=== PATIENT | female | born 1945 | race Caucasian/White ===

== ENCOUNTER → 2016-10-11 | Outpatient (REF) | payer MEDICARE, OTHER ==
[2016-10-11 18:59] LABS: ALBUMIN 3.5 GM/DL (3.2-5.2); ALBUMIN/GLOBULIN RATIO 0.85 (1.00-1.93); ALKALINE PHOSPHATASE 221 U/L (45-117); ALT/SGPT 25 U/L (12-78); ANION GAP 7 MEQ/L (8-16); AST/SGOT 19 U/L (15-37); BILIRUBIN,TOTAL 0.4 MG/DL (0.2-1.0); BLOOD UREA NITROGEN 14 MG/DL (7-18); CALCIUM LEVEL 8.7 MG/DL (8.8-10.2); CARBON DIOXIDE LEVEL 24 MEQ/L (21-32); CHLORIDE LEVEL 107 MEQ/L (98-107); CREATININE FOR GFR 0.69 MG/DL (0.55-1.02); GLOMERULAR FILTRATION RATE > 60.0 (>39); GLUCOSE, FASTING 113 MG/DL (83-110); POTASSIUM SERUM 4.3 MEQ/L (3.5-5.1); SODIUM LEVEL 138 MEQ/L (136-145); TOTAL PROTEIN 7.6 GM/DL (6.4-8.2)
[2016-10-11 19:06] LABS: MEAN CORPUSCULAR HEMOGLOBIN 32.2 pg (27.0-33.0); MEAN CORPUSCULAR HGB CONC 33.7 g/dl (32.0-36.5); MEAN CORPUSCULAR VOLUME 95.7 fl (80.0-96.0); WHITE BLOOD COUNT 10.6 K/mm3 (4.0-10.0)
== END ==
LOC: M LABDRAWC 17:07
PROVIDERS: ATTEND Internal Medicine Gastroenterology
DX: Z41.8 Encounter for other procedures for purposes other than remedying health state (principal); Z94.4 Liver transplant status

== ENCOUNTER 2016-12-16 10:51 | Emergency (ER) | payer MEDICARE, OTHER, MEDICAID ==
[~2016-12-16] VITALS: Ht 162.6 cm; Wt 66.2 kg
[2016-12-16] MEDS ORDERED: ATEN100T PO (11:05)
[2016-12-16] MEDS ORDERED: MYCO500T PO (11:05)
[2016-12-16] MEDS ORDERED: TACR1CAP3 PO (11:05)
[2016-12-16] MEDS ORDERED: AMLO10TA2 PO (11:05)
[2016-12-16] MEDS ORDERED: VENL75TA2 PO (11:05)
[2016-12-16] MEDS ORDERED: URSO300C3 PO (11:05)
[2016-12-16] MEDS ORDERED: OMEP20CA3 PO (11:05)
[2016-12-16] MEDS ORDERED: ASPI81TA7 PO (11:06)
[2016-12-16] MEDS ORDERED: ASPIRIN 81 MG CHEW TABLET PO ONE (11:30)
[2016-12-16 11:40] LABS: BASO % 0.3 % (0.0-1.0); EOS # 0.1 K/mm3 (0.0-0.50); EOS % 1.3 % (0.0-3.0); LARGE UNSTAINED CELL # 0.2 K/mm3 (0.0-0.4); LARGE UNSTAINED CELL % 2.4 % (0.0-4.0); LYMPH # 1.7 K/mm3 (1.5-4.5); LYMPH % 24.9 % (24.0-44.0); MEAN CORPUSCULAR HGB CONC 32.6 g/dl (32.0-36.5); MONO # 0.5 K/mm3 (0.0-0.8); MONO % 7.6 % (0.0-5.0); NEUTROPHILS # 4.3 K/mm3 (1.8-7.7); NEUTROPHILS % 63.6 % (36.0-66.0); PLATELET COUNT, AUTOMATED 207 k/mm3 (150-450); RED CELL DISTRIBUTION WIDTH 13.1 % (11.5-14.5); WHITE BLOOD COUNT 6.7 K/mm3 (4.0-10.0)
[2016-12-16 12:04] LABS: ALBUMIN 3.5 GM/DL (3.2-5.2); ALKALINE PHOSPHATASE 230 U/L (45-117); ALT/SGPT 32 U/L (12-78); ANION GAP 8 MEQ/L (8-16); AST/SGOT 40 U/L (15-37); BILIRUBIN,DIRECT 0.1 MG/DL (0.0-0.2); BILIRUBIN,TOTAL 0.3 MG/DL (0.2-1.0); BLOOD UREA NITROGEN 12 MG/DL (7-18); CALCIUM LEVEL 8.7 MG/DL (8.8-10.2); CARBON DIOXIDE LEVEL 26 MEQ/L (21-32); CHLORIDE LEVEL 107 MEQ/L (98-107); CREATININE FOR GFR 0.69 MG/DL (0.55-1.02); GLOMERULAR FILTRATION RATE > 60.0 (>39); GLUCOSE, FASTING 119 MG/DL (83-110); POTASSIUM SERUM 3.7 MEQ/L (3.5-5.1); SODIUM LEVEL 141 MEQ/L (136-145); TOTAL PROTEIN 8.5 GM/DL (6.4-8.2)
[2016-12-16] MEDS ORDERED: HEPARIN SOD (PORCINE) 5000 UNITS/ML VIAL IV ONE (12:45)
[2016-12-16] MEDS ORDERED: HEPARIN DRIP 25,000 UNITS in APPROPRIATE DILUENT 1 EA IV SCH (12:50)
[2016-12-16 12:59] VITALS: BP 153/74
[2016-12-16] MEDS ORDERED: NITROGLYCERIN 2% OINT 1 GM *U/D* PKT TOP ONE (13:00)
[2016-12-16 13:22] VITALS: BP 147/73
[2016-12-16 13:35] LABS: INR 0.95
--- NOTE | 2016-12-17 07:35 | REP ---
PORTABLE CHEST: HISTORY: Chest pain. COMPARISON: None. The technique utilized in obtaining the radiograph has magnified the cardiac silhouette and accentuated the interstitial markings. There is cardiomegaly with left ventricular prominence. There has been previous median sternotomy. The lung jamil are clear and the osseous structures are within normal limits. IMPRESSION: Cardiomegaly without evidence of acute cardiopulmonary disease. Signed by Pedro Winn DO 12/17/2016 09:54 A
--- NOTE | 2016-12-17 14:41 | ECGEPIP ---
Stationary ECG Study [facility] - ED Test Date: 2016-12-16 Pat Name: TRISHA LICEA Department: Room: - Gender: F Arbitrator: PO : 1945 Requested By: NERY LANDON Order Number: [id number] Reading MD: Melody Mason Measurements Intervals [place] Rate: 62 P: 15 MS: 157 QRS: 5 QRSD: 95 T: 101 QT: 413 QTc: 420 Interpretive Statements SINUS RHYTHM ST DEVIATION AND MODERATE T-WAVE ABNORMALITY, CONSIDER LATERAL ISCHEMIA NO PRIOR FOR COMPARISON Electronically Signed On 12-17-2016 14:41:24 EDT by Melody Mason
== END 2016-12-16 13:25 | disposition short-term general hospital (02) ==
LOC: M ED 11:54
DX: I21.4 Non-ST elevation (NSTEMI) myocardial infarction (principal); I51.7 Cardiomegaly; I10 Essential (primary) hypertension; I25.2 Old myocardial infarction; Z94.4 Liver transplant status; Z95.1 Presence of aortocoronary bypass graft; Z79.899 Other long term (current) drug therapy; Z79.82 Long term (current) use of aspirin; Z87.891 Personal history of nicotine dependence

== ENCOUNTER → 2017-01-09 | Outpatient (REF) | payer MEDICARE, OTHER, MEDICAID ==
[~2017-01-09] MED LIST: AMLO10TA2 PO; ASPI81TA7 PO; ATEN100T PO; MYCO500T PO; OMEP20CA3 PO; TACR1CAP3 PO; URSO300C3 PO; VENL75TA2 PO
== END ==
LOC: M SFHCCLAY 09:05
PROVIDERS: ATTEND Nurse Practitioner Family
DX: E11.9 Type 2 diabetes mellitus without complications (principal); E78.5 Hyperlipidemia, unspecified; E55.9 Vitamin D deficiency, unspecified

== ENCOUNTER → 2017-02-06 | Outpatient (REF) | payer MEDICARE, OTHER, MEDICAID ==
[2017-02-06 18:29] LABS: ALBUMIN 3.7 GM/DL (3.2-5.2); ALBUMIN/GLOBULIN RATIO 0.84 (1.00-1.93); ALKALINE PHOSPHATASE 225 U/L (45-117); ALT/SGPT 25 U/L (12-78); ANION GAP 9 MEQ/L (8-16); AST/SGOT 22 U/L (15-37); BILIRUBIN,TOTAL 0.5 MG/DL (0.2-1.0); BLOOD UREA NITROGEN 12 MG/DL (7-18); CARBON DIOXIDE LEVEL 24 MEQ/L (21-32); CHLORIDE LEVEL 105 MEQ/L (98-107); CREATININE FOR GFR 0.78 MG/DL (0.55-1.02); GLOMERULAR FILTRATION RATE > 60.0 (>39); GLUCOSE, FASTING 140 MG/DL (83-110); POTASSIUM SERUM 4.2 MEQ/L (3.5-5.1); SODIUM LEVEL 138 MEQ/L (136-145); TOTAL PROTEIN 8.1 GM/DL (6.4-8.2)
[2017-02-06 19:51] LABS: MEAN CORPUSCULAR HEMOGLOBIN 31.8 pg (27.0-33.0); MEAN CORPUSCULAR HGB CONC 32.6 g/dl (32.0-36.5); MEAN CORPUSCULAR VOLUME 97.5 fl (80.0-96.0); RED CELL DISTRIBUTION WIDTH 13.3 % (11.5-14.5)
== END ==
LOC: M LABDRAWC 16:30
PROVIDERS: ATTEND Internal Medicine Gastroenterology
DX: Z94.4 Liver transplant status (principal); Z41.8 Encounter for other procedures for purposes other than remedying health state

== ENCOUNTER → 2017-05-15 | Outpatient (REF) | payer MEDICARE, OTHER, MEDICAID ==
[~2017-05-15] MED LIST changes: +ASPI1TAB15 PO; -ASPI81TA7 PO
[2017-05-15 18:10] LABS: ALBUMIN 3.6 GM/DL (3.2-5.2); ALBUMIN/GLOBULIN RATIO 0.82 (1.00-1.93); ALKALINE PHOSPHATASE 241 U/L (45-117); ALT/SGPT 29 U/L (12-78); ANION GAP 6 MEQ/L (8-16); AST/SGOT 21 U/L (15-37); BILIRUBIN,TOTAL 0.4 MG/DL (0.2-1.0); BLOOD UREA NITROGEN 18 MG/DL (7-18); CALCIUM LEVEL 8.9 MG/DL (8.8-10.2); CARBON DIOXIDE LEVEL 29 MEQ/L (21-32); CHLORIDE LEVEL 103 MEQ/L (98-107); CREATININE FOR GFR 0.62 MG/DL (0.55-1.02); GLOMERULAR FILTRATION RATE > 60.0 (>39); GLUCOSE, FASTING 81 MG/DL (83-110); POTASSIUM SERUM 4.3 MEQ/L (3.5-5.1); SODIUM LEVEL 138 MEQ/L (136-145)
[2017-05-15 20:08] LABS: MEAN CORPUSCULAR HEMOGLOBIN 31.4 pg (27.0-33.0); MEAN CORPUSCULAR HGB CONC 31.6 g/dl (32.0-36.5); MEAN CORPUSCULAR VOLUME 99.2 fl (80.0-96.0); RED CELL DISTRIBUTION WIDTH 13.6 % (11.5-14.5); WHITE BLOOD COUNT 9.8 10^3/uL (4.0-10.0)
== END ==
LOC: M LABDRAWC 16:09
PROVIDERS: ATTEND Internal Medicine Gastroenterology
DX: Z41.8 Encounter for other procedures for purposes other than remedying health state (principal); Z94.4 Liver transplant status

== ENCOUNTER → 2017-05-31 | Outpatient (REF) | payer MEDICARE, OTHER, MEDICAID | LOC: M SFHCCLAY 10:29 | PROVIDERS: ATTEND Nurse Practitioner | DX: K21.9 Gastro-esophageal reflux disease without esophagitis (principal) ==

== ENCOUNTER → 2017-06-01 | Outpatient (REF) | payer MEDICARE, OTHER, MEDICAID ==
[2017-06-01 11:25] LABS: BASO % 0.4 % (0.0-1.0); EOS # 0.1 10^3/uL (0.0-0.50); EOS % 0.9 % (0.0-3.0); IMMATURE GRANULOCYTE % 2.1 % (0-0); LYMPH # 2.5 10^3/uL (1.5-4.5); LYMPH % 32.5 % (24.0-44.0); MEAN CORPUSCULAR HEMOGLOBIN 31.4 pg (27.0-33.0); MEAN CORPUSCULAR HGB CONC 32.4 g/dl (32.0-36.5); MONO # 0.8 10^3/uL (0.0-0.8); MONO % 10.5 % (0.0-5.0); NEUTROPHILS # 4.1 10^3/uL (1.8-7.7); NEUTROPHILS % 53.6 % (36.0-66.0); PLATELET COUNT, AUTOMATED 201 10^3/uL (150-450); RED CELL DISTRIBUTION WIDTH 13.1 % (11.5-14.5); WHITE BLOOD COUNT 7.6 10^3/uL (4.0-10.0)
[2017-06-01 12:27] LABS: ALBUMIN 3.5 GM/DL (3.2-5.2); ALBUMIN/GLOBULIN RATIO 0.78 (1.00-1.93); ALKALINE PHOSPHATASE 236 U/L (45-117); ALT/SGPT 31 U/L (12-78); ANION GAP 9 MEQ/L (8-16); AST/SGOT 19 U/L (15-37); BILIRUBIN,TOTAL 0.4 MG/DL (0.2-1.0); BLOOD UREA NITROGEN 12 MG/DL (7-18); CALCIUM LEVEL 9.2 MG/DL (8.8-10.2); CARBON DIOXIDE LEVEL 27 MEQ/L (21-32); CHLORIDE LEVEL 106 MEQ/L (98-107); CREATININE FOR GFR 0.53 MG/DL (0.55-1.02); GLOMERULAR FILTRATION RATE > 60.0 (>39); GLUCOSE, FASTING 125 MG/DL (83-110); POTASSIUM SERUM 4.3 MEQ/L (3.5-5.1); SODIUM LEVEL 142 MEQ/L (136-145)
== END ==
LOC: M SFHCCLAY 09:34
PROVIDERS: ATTEND Nurse Practitioner
DX: K21.9 Gastro-esophageal reflux disease without esophagitis (principal)

== ENCOUNTER → 2017-09-20 | Outpatient (REF) | payer MEDICARE, MEDICAID, OTHER ==
[2017-09-20 20:15] LABS: HEMATOCRIT 39.9 % (36.0-47.0); HEMOGLOBIN 12.8 g/dl (12.0-16.0); MEAN CORPUSCULAR HEMOGLOBIN 31.4 pg (27.0-33.0); MEAN CORPUSCULAR HGB CONC 32.1 g/dl (32.0-36.5); MEAN CORPUSCULAR VOLUME 97.8 fl (80.0-96.0); PLATELET COUNT, AUTOMATED 189 10^3/uL (150-450); RED BLOOD COUNT 4.08 10^6/uL (4.00-5.40); RED CELL DISTRIBUTION WIDTH 13.6 % (11.5-14.5); WHITE BLOOD COUNT 7.3 10^3/uL (4.0-10.0)
[2017-09-20 20:27] LABS: ALBUMIN 3.6 GM/DL (3.2-5.2); ALBUMIN/GLOBULIN RATIO 0.86 (1.00-1.93); ALKALINE PHOSPHATASE 183 U/L (45-117); ALT/SGPT 26 U/L (12-78); ANION GAP 9 MEQ/L (8-16); AST/SGOT 20 U/L (7-37); BILIRUBIN,TOTAL 0.3 MG/DL (0.2-1.0); BLOOD UREA NITROGEN 15 MG/DL (7-18); CALCIUM LEVEL 8.5 MG/DL (8.8-10.2); CARBON DIOXIDE LEVEL 27 MEQ/L (21-32); CHLORIDE LEVEL 106 MEQ/L (98-107); CREATININE FOR GFR 0.66 MG/DL (0.55-1.30); GLOMERULAR FILTRATION RATE > 60.0 (>39); GLUCOSE, FASTING 136 MG/DL (70-100); POTASSIUM SERUM 4.1 MEQ/L (3.5-5.1); SODIUM LEVEL 142 MEQ/L (136-145); TOTAL PROTEIN 7.8 GM/DL (6.4-8.2)
[2017-09-23 10:11] LABS: FK 506 (TACROLIMUS) LABCORP 6.1 ng/mL (2.0-20.0)
== END ==
LOC: M LABDRAWC 19:16
DX: Z94.4 Liver transplant status (principal)
CPT/HCPCS: 80053

== ENCOUNTER → 2017-11-06 | Outpatient (CLI) | payer MEDICARE, MEDICAID, OTHER | LOC: M CLY 14:33 | DX: I25.10 Atherosclerotic heart disease of native coronary artery without angina pectoris (principal); R06.02 Shortness of breath; I51.7 Cardiomegaly; J90 Pleural effusion, not elsewhere classified | CPT/HCPCS: 71046 ==

== ENCOUNTER → 2018-02-25 | Outpatient (REF) | payer MEDICARE, MEDICAID, OTHER ==
[2018-02-25 17:36] LABS: HEMATOCRIT 41.4 % (36.0-47.0); HEMOGLOBIN 13.5 g/dl (12.0-15.5); MEAN CORPUSCULAR HEMOGLOBIN 31.7 pg (27.0-33.0); MEAN CORPUSCULAR HGB CONC 32.6 g/dl (32.0-36.5); MEAN CORPUSCULAR VOLUME 97.2 fl (80.0-96.0); PLATELET COUNT, AUTOMATED 146 10^3/uL (150-450); RED BLOOD COUNT 4.26 10^6/uL (4.00-5.40); RED CELL DISTRIBUTION WIDTH 14.5 % (11.5-14.5); WHITE BLOOD COUNT 5.7 10^3/uL (4.0-10.0)
[2018-02-25 18:11] LABS: ALBUMIN 3.4 GM/DL (3.2-5.2); ALBUMIN/GLOBULIN RATIO 0.76 (1.00-1.93); ALKALINE PHOSPHATASE 420 U/L (45-117); ALT/SGPT 78 U/L (12-78); ANION GAP 12 MEQ/L (8-16); AST/SGOT 64 U/L (7-37); BILIRUBIN,TOTAL 0.4 MG/DL (0.2-1.0); BLOOD UREA NITROGEN 13 MG/DL (7-18); CARBON DIOXIDE LEVEL 23 MEQ/L (21-32); CHLORIDE LEVEL 106 MEQ/L (98-107); CREATININE FOR GFR 0.66 MG/DL (0.55-1.30); GLOMERULAR FILTRATION RATE > 60.0 (>39); GLUCOSE, FASTING 153 MG/DL (70-100); POTASSIUM SERUM 4.5 MEQ/L (3.5-5.1); SODIUM LEVEL 141 MEQ/L (136-145); TOTAL PROTEIN 7.9 GM/DL (6.4-8.2)
[2018-02-28 08:57] LABS: FK 506 (TACROLIMUS) LABCORP 4.3 ng/mL (2.0-20.0)
== END ==
LOC: M LABDRAWC 16:16
DX: Z94.4 Liver transplant status (principal)
CPT/HCPCS: 80053

== ENCOUNTER → 2018-04-01 | Outpatient (REF) | payer MEDICARE, MEDICAID, OTHER ==
[2018-04-01 17:49] LABS: ALBUMIN 3.5 GM/DL (3.2-5.2); ALBUMIN/GLOBULIN RATIO 0.76 (1.00-1.93); ALKALINE PHOSPHATASE 363 U/L (45-117); ALT/SGPT 46 U/L (12-78); ANION GAP 12 MEQ/L (8-16); AST/SGOT 30 U/L (7-37); BILIRUBIN,TOTAL 0.5 MG/DL (0.2-1.0); BLOOD UREA NITROGEN 13 MG/DL (7-18); CALCIUM LEVEL 8.5 MG/DL (8.8-10.2); CARBON DIOXIDE LEVEL 22 MEQ/L (21-32); CHLORIDE LEVEL 106 MEQ/L (98-107); CREATININE FOR GFR 0.64 MG/DL (0.55-1.30); GLOMERULAR FILTRATION RATE > 60.0 (>39); GLUCOSE, FASTING 147 MG/DL (70-100); POTASSIUM SERUM 3.9 MEQ/L (3.5-5.1); SODIUM LEVEL 140 MEQ/L (136-145); TOTAL PROTEIN 8.1 GM/DL (6.4-8.2)
[2018-04-01 18:07] LABS: HEMATOCRIT 32.2 % (36.0-47.0); HEMOGLOBIN 10.2 g/dl (12.0-15.5); MEAN CORPUSCULAR HEMOGLOBIN 31.1 pg (27.0-33.0); MEAN CORPUSCULAR HGB CONC 31.7 g/dl (32.0-36.5); MEAN CORPUSCULAR VOLUME 98.2 fl (80.0-96.0); PLATELET COUNT, AUTOMATED 182 10^3/uL (150-450); RED BLOOD COUNT 3.28 10^6/uL (4.00-5.40); RED CELL DISTRIBUTION WIDTH 13.8 % (11.5-14.5)
[2018-04-04 10:26] LABS: FK 506 (TACROLIMUS) LABCORP 14.9 ng/mL (2.0-20.0)
== END ==
LOC: M LABDRAWC 16:41
DX: Z94.4 Liver transplant status (principal)
CPT/HCPCS: 80053

== ENCOUNTER → 2018-04-23 | Outpatient (REF) | payer MEDICARE, MEDICAID, OTHER ==
[2018-04-23 18:09] LABS: HEMATOCRIT 33.8 % (36.0-47.0); HEMOGLOBIN 10.2 g/dl (12.0-15.5); MEAN CORPUSCULAR HEMOGLOBIN 29.7 pg (27.0-33.0); MEAN CORPUSCULAR HGB CONC 30.2 g/dl (32.0-36.5); MEAN CORPUSCULAR VOLUME 98.3 fl (80.0-96.0); PLATELET COUNT, AUTOMATED 219 10^3/uL (150-450); RED BLOOD COUNT 3.44 10^6/uL (4.00-5.40); RED CELL DISTRIBUTION WIDTH 14.6 % (11.5-14.5); WHITE BLOOD COUNT 8.2 10^3/uL (4.0-10.0)
[2018-04-23 19:10] LABS: ALBUMIN 3.4 GM/DL (3.2-5.2); ALBUMIN/GLOBULIN RATIO 0.79 (1.00-1.93); ALKALINE PHOSPHATASE 405 U/L (45-117); ALT/SGPT 44 U/L (12-78); ANION GAP 8 MEQ/L (8-16); AST/SGOT 37 U/L (7-37); BILIRUBIN,TOTAL 0.3 MG/DL (0.2-1.0); BLOOD UREA NITROGEN 14 MG/DL (7-18); CALCIUM LEVEL 8.8 MG/DL (8.8-10.2); CARBON DIOXIDE LEVEL 24 MEQ/L (21-32); CHLORIDE LEVEL 110 MEQ/L (98-107); CREATININE FOR GFR 0.69 MG/DL (0.55-1.30); GLOMERULAR FILTRATION RATE > 60.0 (>39); GLUCOSE, FASTING 131 MG/DL (70-100); POTASSIUM SERUM 4.4 MEQ/L (3.5-5.1); SODIUM LEVEL 142 MEQ/L (136-145); TOTAL PROTEIN 7.7 GM/DL (6.4-8.2)
[2018-04-26 08:06] LABS: FK 506 (TACROLIMUS) LABCORP 3.3 ng/mL (2.0-20.0)
== END ==
LOC: M LABDRAWC 16:30
DX: Z94.4 Liver transplant status (principal)
CPT/HCPCS: 80053

== ENCOUNTER → 2018-05-21 | Outpatient (REF) | payer MEDICARE, MEDICAID, OTHER ==
[2018-05-21 20:10] LABS: HEMATOCRIT 34.4 % (36.0-47.0); HEMOGLOBIN 10.4 g/dl (12.0-15.5); MEAN CORPUSCULAR HEMOGLOBIN 28.7 pg (27.0-33.0); MEAN CORPUSCULAR HGB CONC 30.2 g/dl (32.0-36.5); MEAN CORPUSCULAR VOLUME 94.8 fl (80.0-96.0); PLATELET COUNT, AUTOMATED 213 10^3/uL (150-450); RED BLOOD COUNT 3.63 10^6/uL (4.00-5.40); RED CELL DISTRIBUTION WIDTH 14.9 % (11.5-14.5); WHITE BLOOD COUNT 6.2 10^3/uL (4.0-10.0)
[2018-05-21 20:53] LABS: ALBUMIN 3.2 GM/DL (3.2-5.2); ALBUMIN/GLOBULIN RATIO 0.71 (1.00-1.93); ALKALINE PHOSPHATASE 412 U/L (45-117); ALT/SGPT 46 U/L (12-78); ANION GAP 9 MEQ/L (8-16); AST/SGOT 42 U/L (7-37); BILIRUBIN,TOTAL 0.4 MG/DL (0.2-1.0); BLOOD UREA NITROGEN 13 MG/DL (7-18); CALCIUM LEVEL 8.1 MG/DL (8.8-10.2); CARBON DIOXIDE LEVEL 24 MEQ/L (21-32); CHLORIDE LEVEL 107 MEQ/L (98-107); CREATININE FOR GFR 0.68 MG/DL (0.55-1.30); GLOMERULAR FILTRATION RATE > 60.0 (>39); GLUCOSE, FASTING 85 MG/DL (70-100); POTASSIUM SERUM 4.3 MEQ/L (3.5-5.1); SODIUM LEVEL 140 MEQ/L (136-145); TOTAL PROTEIN 7.7 GM/DL (6.4-8.2)
[2018-05-24 16:53] LABS: FK 506 (TACROLIMUS) LABCORP 5.9 ng/mL (2.0-20.0)
== END ==
LOC: M LABDRAWC 16:29
DX: Z94.4 Liver transplant status (principal)
CPT/HCPCS: 80053

== ENCOUNTER 2018-08-09 15:06 | Inpatient (IN) | payer MEDICARE, MEDICAID ==
[~2018-08-09] VITALS: Ht 157.5 cm; Wt 66.6 kg
[~2018-08-09 15:06] MED LIST changes: -AMLO10TA2 PO; +AMLO10TA4 PO
[2018-08-09] MEDS ORDERED: MULT1CHW PO (15:21)
[2018-08-09] MEDS ORDERED: PLAV1TAB2 PO (15:21)
[2018-08-09 16:03] LABS: BASO % 0.3 % (0.0-1.0); EOS # 0.1 10^3/uL (0.0-0.50); EOS % 0.8 % (0.0-3.0); HEMATOCRIT 41.2 % (36.0-47.0); HEMOGLOBIN 13.5 g/dl (12.0-15.5); LYMPH # 1.6 10^3/uL (1.5-4.5); LYMPH % 16.6 % (24.0-44.0); MEAN CORPUSCULAR HEMOGLOBIN 29.9 pg (27.0-33.0); MEAN CORPUSCULAR HGB CONC 32.8 g/dl (32.0-36.5); MEAN CORPUSCULAR VOLUME 91.4 fl (80.0-96.0); MONO # 0.7 10^3/uL (0.0-0.8); MONO % 7.8 % (0.0-5.0); NEUTROPHILS # 6.6 10^3/uL (1.8-7.7); NEUTROPHILS % 70.7 % (36.0-66.0); PLATELET COUNT, AUTOMATED 194 10^3/uL (150-450); RED BLOOD COUNT 4.51 10^6/uL (4.00-5.40); WHITE BLOOD COUNT 9.3 10^3/uL (4.0-10.0)
[2018-08-09 16:19] LABS: INR 0.98; PARTIAL THROMBOPLASTIN TIME 28.6 SECONDS (25.4-37.6); PROTHROMBIN TIME 13.1 SECONDS (12.1-14.4)
[2018-08-09 16:30] LABS: ALBUMIN 3.5 GM/DL (3.2-5.2); ALT/SGPT 49 U/L (12-78); AMYLASE 41 U/L (25-115); BILIRUBIN,DIRECT 0.4 MG/DL (0.0-0.2); BILIRUBIN,TOTAL 0.7 MG/DL (0.2-1.0); BLOOD UREA NITROGEN 15 MG/DL (7-18); CALCIUM LEVEL 9.3 MG/DL (8.8-10.2); CARBON DIOXIDE LEVEL 22 MEQ/L (21-32); CHLORIDE LEVEL 108 MEQ/L (98-107); CREATININE FOR GFR 0.66 MG/DL (0.55-1.30); GLOMERULAR FILTRATION RATE > 60.0 (>39); GLUCOSE, FASTING 139 MG/DL (70-100); LIPASE 96 U/L (73-393); POTASSIUM SERUM 4.1 MEQ/L (3.5-5.1); SODIUM LEVEL 138 MEQ/L (136-145)
[2018-08-09] MEDS ORDERED: ISOVUE-370 76% 100ML VIAL (Q9967) As Ordered ONE (17:28)
[2018-08-09] MEDS ORDERED: ONDANSETRON 4MG/2ML VIAL (J2405) IV ONE (17:30)
[2018-08-09] MEDS ORDERED: NS 1,000 ML IV ONE (17:30)
[2018-08-09] MEDS: MORPHINE 4 MG/ML 1ML VIAL/SYRINGE (J2270) IV PRN ×2 (17:30→23:41)
--- NOTE | 2018-08-09 18:08 | REP ---
Clinical: Periumbilical pain. Technique: Axial contrast enhanced images from the lung bases to the pubic symphysis using 100 ml Isovue 370 intravenous contrast material with coronal and sagittal re-formations. Findings: High-grade small bowel obstruction is appreciated with transition identified in the left lower quadrant due to adhesions (images 88-100). More distal small bowel and colon are relatively normal in appearance. Meticulous is noted without acute diverticulitis. Small amount of free fluid identified in the pelvis. No free air to suggest perforation. Liver, spleen, pancreas, bilateral adrenal glands and kidneys are within normal limits. Evidence for prior cholecystectomy noted. Fat containing supraumbilical hernia measures 7.1 cm maximal diameter with the anterior wall defect measuring 2.7 cm maximal diameter. Pelvis demonstrates normal bladder and age-appropriate uterus/adnexa. Atherosclerotic changes to the vasculature noted without aortic aneurysm or dissection. Musculoskeletal structures are intact. Lung bases demonstrate chronic changes. Impression: 1. High-grade small bowel obstruction with transition in the left lower quadrant due to adhesions. Small amount of free fluid in the pelvis. No free air to suggest perforation. 2. Moderate fat containing supraumbilical ventral hernia. Electronically Signed by Nathanael Chatterjee MD 08/09/2018 06:00 P
[2018-08-09] MEDS ORDERED: OCUVTAB PO (19:17)
[2018-08-09] MEDS ORDERED: MORPHINE 4 MG/ML 1ML VIAL/SYRINGE (J2270) IV PRN (20:30)
[2018-08-09] MEDS ORDERED: ACETAMINOPHEN TAB 650MG DOSE (2X325MG) PO PRN (20:30)
[2018-08-09] MEDS ORDERED: KETOROLAC 30 MG/ML VIAL (J1885) IV PRN (20:30)
[2018-08-09] MEDS ORDERED: ONDANSETRON 4MG/2ML VIAL (J2405) IV PRN (20:30)
[2018-08-09] MEDS ORDERED: PIPERACILLIN/TAZOBACTAM SOD 3.375 GM in D5W MINI-BAG PLUS 50 ML IV SCH (21:00)
--- NOTE | 2018-08-09 21:59 | CR.PDOC ---
General Date of Consultation: Aug 09, 2018 Referring Provider: AYAKA SOUZA DO Primary Care Physician: Maxine Pierre LIABILITY ANALYST Consultation REASON FOR CONSULTATION/CHIEF COMPLAINT: Medical management and surgical optimization. HISTORY OF PRESENT ILLNESS: Mrs. Tellez is a 72-year-old female presenting with progressively worsening abdominal pain that began this morning when she woke up. She states it is sharp, intermittent, and generalized abdominal pain that she has never had before. He rates her pain as an 8 or 9/10 at its worst, but is currently comfortable. She also had accompanying nausea and dry heaves. Her last meal was at 7 PM yesterday and her last bowel movement was this morning at approximately 11 AM, it was normal. She denies any fevers, chills, chest pain, shortness of breath, hemoptysis, constipation, diarrhea. At bedside she has an NG tube hooked to suction with 300 mL out so far. She presented to the emergency department earlier today and Dr. Donahue was consulted for surgical intervention. He is also consulted the hospitalist service for medical management and surgical optimization. ALLERGIES: Please see below. HOME MEDICATIONS: Please see below. 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 One brother from heart disease. Children: One son, one daughterhealthy Family history is positive for heart disease and hypertension SOCIAL HISTORY: She has not smoked in over 30 years (nonsmoker status). She admits to drinking a glass of wine once a week She denies any marijuana, heroin, cocaine, PCP use. She has a dog at home and lives at home She is a retired part-time application programmer analyst, real estate rep REVIEW OF SYSTEMS: CONSTITUTIONAL: Denies fevers, chills, recent unexpected weight change. HEENT: States she has chronic headaches, dizziness from the medications she takes. At baseline she has poor vision secondary to macular degeneration. CARDIOVASCULAR: She denies any chest pain, palpitations, dyspnea. RESPIRATORY: She denies any wheezing, coughing, shortness of breath. GENITOURINARY: Denies any difficulties urinating, frequency, hesitancy. MUSCULOSKELETAL: She currently denies any muscle aches, pains. GASTROINTESTINAL: HPI above. SKIN: She denies any skin breakdown, rashes, lesions NEUROLOGICAL: She denies any numbness, tingling, focal weakness PHYSICAL EXAMINATION: VITAL SIGNS: Please see below. GENERAL APPEARANCE: Patient is alert, oriented, lying comfortably in bed HEENT: Normocephalic, atraumatic. NG tube is in nostril set to suction. No pha ryngeal erythema. RESPIRATORY: CTAB with full breath sounds. Symmetric thorax. No wheezes, crackles, rhonchi. CARDIOVASCULAR: RRR. Normal S1 and S2. No murmurs, gallops, rubs. ABDOMEN: Abdomen is soft, mildly tender to palpation, non-distended. She does have a large periumbilical hernia. Hyperactive bowel sounds throughout her abdomen EXTREMITIES: Radial and DP pulses +2/4 bilaterally. No cyanosis, clubbing or edema. NEUROLOGICAL: Normal speech, CN IIIXII grossly intact. Strength +5/5 bilateral ly in upper and lower extremities. PSYCHIATRIC: Normal mood LABORATORY DATA: Please see below. ASSESSMENT/PLAN: #.Small Bowel Obstruction - Patient NPO, NG tube, further management per Dr. Souza - Patient has no plans for OR overnight, defer to Dr. Souza #. Preoperative management - If emergent surgical intervention is needed, patient is medically optimized as much as possible up to this point. Defer to surgery. - Patient without history of diabetes, no documented CHF, CVA, sleep apnea, kidney failure, but has a history of recent stent placement in October of this year and on aspirin and Plavix with history of liver transplant on immunotherapy. Functional capacity is >4 METs. - Due to recent stent placement and liver transplant history, patient is moderate to high-risk for immediate surgery. - Patient is at risk of bleeding with anticoagulants, but also at risk for coronary stenosis without. These have been held by surgery for possible emergent intervention. - She also is at increased risk for infection on immunotherapy, but off meds she is at increased risk for liver transplant rejection. - Surgical risk stratification scores have been calculated (ACS NSQIP) and rate her as above average risk for complications including , infection, and heart or kidney injury. Her perioperative risk of an [place] or cardiac arrest is 2.6%(ACS NSQIP PARAMJIT score). - If emergent surgical intervention is needed patient is optimized as much as possible at this point. For elective intervention, patient will require cardiology evaluation and recommendations as patient may need to hold aspirin 7-10 days and for Plavix 5-7 days prior to surgery. Cardiology consult is recommended in the a.m. Liver transplant 11 years ago and is still on immunotherapy, communicate with liver transplant specialist in a.m. if possible. Continue immunotherapy and utilize surgical antibiotic protocol and monitor for signs of infection if emergent surgery is required. #. CAD Surgery resumed atenolol but held aspirin and Plavix. Patient does not seem to be on any statin therapy. Cardiology consult recommended. EKG: HR 65, sinus rhythm, T-wave inversions in Lead 1 and AvL unchanged from prior record, V5-V6 improved from previous record, no ST elevation, motion artifacts #. HTN - Continue Norvasc #. Liver transplant - Continue Tacrolimus, mycophenolate mofetil, and urodiol as per surgery #. GERD - On IV Protonix as per surgery #. Anxiety - Continue Effexor DVT prophylaxis: As per surgery Vital Signs/I&O Vital Signs Date Time Temp Pulse Resp B/P (MAP) Pulse Ox O2 Delivery O2 Flow Rate FiO2 08/09/18 20:04 98.3 71 12 139/79 (99) 96 Room Air Laboratory Data Labs 24H Laboratory Tests 2 08/09/18 15:56: Immature Granulocyte % (Auto) 3.8H, White Blood Count 9.3, Red Blood Count 4.51, Hemoglobin 13.5, Hematocrit 41.2, Mean Corpuscular Volume 91.4, Mean Corpuscular Hemoglobin 29.9, Mean Corpuscular Hemoglobin Concent 32.8, Red Cell Distribution Width 17.7H, Platelet Count 194, Neutrophils (%) (Auto) 70.7H, Lymphocytes (%) (Auto) 16.6L, Monocytes (%) (Auto) 7.8H, Eosinophils (%) (Auto) 0.8, Basophils (%) (Auto) 0.3, Neutrophils # (Auto) 6.6, Lymphocytes # (Auto) 1.6, Monocytes # (Auto) 0.7, Eosinophils # (Auto) 0.1, Basophils # (Auto) 0.0, Nucleated Red Blood Cells % (auto) 0.0, Prothrombin Time 13.1, Prothromb Time International Ratio 0.98, Activated Partial Thromboplast Time 28.6, Anion Gap 8, Glomerular Filtration Rate > 60.0, Lactic Acid Level 0.9, Calcium Level 9.3, Aspartate Amino Transf (AST/SGOT) 48H, Alanine Aminotransferase (ALT/SGPT) 49, Alkaline Phosphatase 420H, Total Bilirubin 0.7, Direct Bilirubin 0.4H, Total Protein 8.0, Albumin 3.5, Albumin/Globulin Ratio 0.78L, Amylase Level 41, Lipase 96 CBC/BMP Laboratory Tests 08/09/18 15:56 Red Blood Count 4.51, Mean Corpuscular Volume 91.4, Mean Corpuscular Hemoglobin 29.9, Mean Corpuscular Hemoglobin Concent 32.8, Red Cell Distribution Width 17.7 H, Neutrophils (%) (Auto) 70.7 H, Lymphocytes (%) (Auto) 16.6 L, Monocytes (%) (Auto) 7.8 H, Eosinophils (%) (Auto) 0.8, Basophils (%) (Auto) 0.3, Neutrophils # (Auto) 6.6, Lymphocytes # (Auto) 1.6, Monocytes # (Auto) 0.7, Eosinophils # (Auto) 0.1, Basophils # (Auto) 0.0 Allergies Coded Allergies: No Known Allergies (Unverified , 12/16/16) Home Medications Scheduled Amlodipine Besylate (Amlodipine Besylate) 10 Mg Tab, 10 MG PO DAILY, (Reported) Aspirin (Aspirin) 81 Mg Tab, 81 MG PO DAILY, (Reported) Atenolol (Atenolol) 100 Mg Tab, 100 MG PO DAILY, (Reported) Clopidogrel Bisulfate (Plavix) 75 Mg Tab, 75 MG PO DAILY, (Reported) Multivitamins (Ocuvite) 1 Tab Tab, 1 TAB PO DAILY, (Reported) Mycophenolate Mofetil (Mycophenolate Mofetil) 500 Mg Tab, 500 MG PO BID, (Reported) Omeprazole (Omeprazole) 20 Mg Cap, 20 MG PO DAILY, (Reported) Tacrolimus (Tacrolimus) 1 Mg Cap, 1 MG PO BID, (Reported) Ursodiol (Ursodiol) 300 Mg Cap, 300 MG PO TID, (Reported) Venlafaxine Hydrochloride (Venlafaxine HCl) 75 Mg Tab, 75 MG PO BID, (Reported) GME ATTESTATION GME ATTESTATION My faculty preceptor for this patient encounter was physically present during the encounter and was fully available. All aspects of the patient interview, examination, medical decision making process, and medical care plan development were reviewed and approved by the faculty preceptor. The faculty preceptor is aware and concurs with the plan as stated in the body of this note and will attest to such by his/her cosignature. MILY LAWS DO Aug 09, 2018 21:59
[2018-08-09] MEDS: KCL 20MEQ IN D5/0.45NS 1000ML 1,000 ML IV SCH (23:41)
[2018-08-10 02:05] VITALS: BP 164/79
[2018-08-10] MEDS: HEPARIN SOD (PORCINE) 5000 UNITS/ML VIAL SC SCH ×5 (02:36→21:07)
[2018-08-10] MEDS: VENLAFAXINE 37.5 MG TAB PO SCH ×3 (02:53→21:08)
[2018-08-10] MEDS: MYCOPHENOLATE MOFETIL 250 MG CAP (J7517) PO SCH ×3 (02:53→21:08)
[2018-08-10] MEDS: TACROLIMUS 1 MG CAP (J7507) PO SCH ×3 (02:53→21:07)
[2018-08-10] MEDS: URSODIOL 300 MG CAP PO SCH ×4 (02:54→21:07)
[2018-08-10] MEDS: PIPERACILLIN/TAZOBACTAM SOD 3.375 GM in D5W MINI-BAG PLUS 50 ML IV SCH ×4 (05:55→23:16)
[2018-08-10 06:00] VITALS: BP 132/70
[2018-08-10 06:11] LABS: MEAN CORPUSCULAR HEMOGLOBIN 29.7 pg (27.0-33.0); MEAN CORPUSCULAR HGB CONC 32.2 g/dl (32.0-36.5); MEAN CORPUSCULAR VOLUME 92.2 fl (80.0-96.0); PLATELET COUNT, AUTOMATED 146 10^3/uL (150-450); RED BLOOD COUNT 3.47 10^6/uL (4.00-5.40); WHITE BLOOD COUNT 9.8 10^3/uL (4.0-10.0)
[2018-08-10 06:23] LABS: HEMOGLOBIN 10.3 g/dl (12.0-15.5)
[2018-08-10 06:34] LABS: BLOOD UREA NITROGEN 12 MG/DL (7-18); CALCIUM LEVEL 7.7 MG/DL (8.8-10.2); CARBON DIOXIDE LEVEL 23 MEQ/L (21-32); CHLORIDE LEVEL 109 MEQ/L (98-107); CREATININE FOR GFR 0.66 MG/DL (0.55-1.30); GLOMERULAR FILTRATION RATE > 60.0 (>39); GLUCOSE, FASTING 161 MG/DL (70-100); MAGNESIUM LEVEL 1.4 MG/DL (1.8-2.4); POTASSIUM SERUM 3.9 MEQ/L (3.5-5.1); SODIUM LEVEL 140 MEQ/L (136-145)
--- NOTE | 2018-08-10 07:35 | ECGEPIP ---
Stationary ECG Study [facility] Test Date: 2018-08-09 Pat Name: TRISHA LICEA Department: Room: [place] [address] Gender: F Rag Room Supervisor: : 1945 Requested By: DELORIS Alexandre Order Number: [id number] Reading MD: Ana Saldivar Measurements Intervals [place] Rate: 65 P: 51 MA: 176 QRS: 1 QRSD: 93 T: 120 QT: 418 QTc: 437 Interpretive Statements SINUS RHYTHM LEFT VENTRICULAR HYPERTROPHY AND ST-T CHANGE Left axis deviation POSSSIBLE OLD IWMI NEW Q AVF C/W 12/16/16 Electronically Signed On 08-10-2018 7:35:31 EST by Ana Saldivar
[2018-08-10] MEDS ORDERED: ASPIRIN 81 MG ENTERIC TAB PO SCH (09:00)
[2018-08-10] MEDS ORDERED: CLOPIDOGREL 75 MG TAB PO SCH (09:00)
[2018-08-10] MEDS: amLODIPine 10 MG TAB PO SCH (09:57)
[2018-08-10] MEDS: KCL 20MEQ IN D5/0.45NS 1000ML 1,000 ML IV SCH ×3 (09:57→23:15)
[2018-08-10] MEDS: ATENOLOL 50 MG TAB PO SCH (09:58)
[2018-08-10] MEDS: PANTOPRAZOLE 40MG INJ (PROTONIX) (C9113) IV SCH (09:58)
--- NOTE | 2018-08-10 12:54 | IPNPDOC ---
Text Note Date of Service The patient was seen on 08/10/18. NOTE No acute events overnight. Her abd pain is improved after the NG drainage. D enies nausea, emesis, fevers, or pains. She had 2 large BMs, and is passing lots of flatus. VSSAF NG - 660 NAD abd - soft, nt, nd labs - below A) 72y/o female with SBO secondary to likely adhesions is resolving CAD s/p liver transplant P) clamp NGT replace electrolytes ambulate plan on d/c NGT and advance diet tomorrow if tolerating overnight will restart ASA and plavix tomorrow if she is continuing to improve. Akash Souza DO VS,Fishbone, I+O VS, Fishbone, I+O Laboratory Tests 08/09/18 15:56 Red Blood Count 4.51, Mean Corpuscular Volume 91.4, Mean Corpuscular Hemoglobin 29.9, Mean Corpuscular Hemoglobin Concent 32.8, Red Cell Distribution Width 17.7 H, Neutrophils (%) (Auto) 70.7 H, Lymphocytes (%) (Auto) 16.6 L, Monocytes (%) (Auto) 7.8 H, Eosinophils (%) (Auto) 0.8, Basophils (%) (Auto) 0.3, Neutrophils # (Auto) 6.6, Lymphocytes # (Auto) 1.6, Monocytes # (Auto) 0.7, Eosinophils # (Auto) 0.1, Basophils # (Auto) 0.0 08/10/18 06:00 Red Blood Count 3.47 L, Mean Corpuscular Volume 92.2, Mean Corpuscular Hemoglobin 29.7, Mean Corpuscular Hemoglobin Concent 32.2, Red Cell Distribution Width 17.8 H, Calcium Level 7.7 #L Vital Signs Date Time Temp Pulse Resp B/P (MAP) Pulse Ox O2 Delivery O2 Flow Rate FiO2 08/10/18 09:58 73 132/70 08/10/18 06:00 96.8 18 93 Room Air I&O- Last 24 Hours up to 6 AM 08/10/18 06:00 Intake Total 600 ml Output Total 935 ml Balance -335 ml AYAKA SOUZA DO Aug 10, 2018 12:54
[2018-08-10] MEDS ORDERED: MAG SULF 1GM/100ML (MAG RUN) 1 GM in APPROPRIATE DILUENT 1 EA IV ONE (13:00)
--- NOTE | 2018-08-10 13:54 | IPN ---
DATE: 08/10/2018 Jessika is seen [facility]. She is on the hospitalist service, but she is actually a patient of Dr. Johnson in [place] so her consulting care will be transferred to [facility] tomorrow. She is being treated nonsurgically for small bowel obstruction. Her medical history is significant for coronary artery disease, history of myocardial infarction (ME) with coronary artery stents 12/2016 as well as 2017 and she has primary biliary cirrhosis status post liver transplant, history of hypertension. She feels better, less abdominal pain and distension. PHYSICAL EXAMINATION: VITAL SIGNS: Stable. LUNGS: Clear. HEART: Regular rhythm. ABDOMEN: Distended, soft, no focal tenderness. No peripheral edema. LABS: CBC, BMP look unremarkable. Magnesium 1.7. IMPRESSION: 1. Coronary artery disease, stable. It looks like she is going to be treated nonsurgical so I am going to restart her Plavix and aspirin. She has had coronary artery stents and would benefit from restarting this medication. 2. History of liver transplant. Continue her antirejection drugs. 3. Primary biliary sclerosis. Continue her Actigall. 4. History of anxiety/depression. Stable on current dose of Effexor. 5. Hypertension. Blood pressure is well controlled on atenolol and amlodipine.
[2018-08-10 14:00] VITALS: BP 132/68
[2018-08-10] MEDS: MAG SULF 1GM/100ML (MAG RUN) 1 GM in APPROPRIATE DILUENT 1 EA IV SCH ×2 (14:00→15:00)
--- NOTE | 2018-08-10 14:49 | CR ---
DATE OF CONSULTATION: 08/10/2018 CARDIOLOGY CONSULTATION REFERRING PHYSICIAN: Dr. Kaylin Hinds LEASING PROFESSIONAL: [facility] INDICATION: Preoperative assessment of cardiac risk. HISTORY: This 72-year-old, (times 3 years) mother of two grown children has lives in [place], [place], for the past 3 years. Has a very longstanding history of ischemic heart disease, previously followed on one occasion by my practice some 12 years ago. Non-Q-wave myocardial infarction November 1991 with subsequent triple-vessel bypass surgery February 2000. Acute coronary syndrome/non-Q-wave infarction (peak troponin 2.5) 12/16/2016 with cardiac catheterization showing normal left ventricular systolic function with ejection fraction of 65%, occluded [place] coronary arteries with patent left internal mammary artery (CAGLE) to the left anterior descending (LAD) with extensive collaterals to the right coronary artery and sequential bypass vein graft to the isolated marginal and obtuse marginal branch and circumflex. The sequential portion to the obtuse marginal showed a 90% occlusion with thrombus; a drug-eluting stent was successfully placed. Apparently, October of this year had a recurrent problem with followup cardiac catheterization (report unavailable). Apparently did not receive a stent at this time, but I suspect the previously placed stent December 2016 was angioplastied with a balloon. CURRENT CARDINAL CARDIAC SYMPTOMS: At this point, effort is limited by dyspnea, carrying groceries approximately 50 feet. Has been completely free of any chest, jaw, or arm discomfort since her last intervention in October. Does, however, have a history of esophageal reflux and intermittent heartburn, on chronic Protonix therapy. Despite her effort dyspnea, denies orthopnea or nocturnal dyspnea. Is unaware of her cardiomegaly, radiographically proven for at least the past year. No history of congestive heart failure. Home blood pressure readings she claims average 140 over 70s on her atenolol and amlodipine. Has occasional positional lightheadedness of fleeting duration. Her only fall was related to tripping. Nine months ago fell over a floor fan, sustaining a forehead laceration requiring some 22 linda. No other falls. Recalls hitting a table and did not lose consciousness. Though she has a history of paroxysmal atrial fibrillation at some point in the remote past, denies actual awareness of her heart action. No actual documented event since 04/02/2000 shortly after her bypass surgery. Denies any localized or lateralizing neurological event or blue toe syndrome. No history of varicose veins, phlebitis, or ankle swelling. No claudication. No known history of rheumatic fever or heart murmur. CORONARY RISK FACTORS: Advanced age, very remote 12-year smoking history. Stopped in her mid 30s. Chronic hypertension, hypercholesterolemia but not on statin therapy because of history of primary biliary cirrhosis post liver transplant 2005. Prior history of stress hyperglycemia but no actual diabetes mellitus. FAMILY HISTORY: Not applicable. REVIEW OF SYSTEMS: Please refer to the admission history and physical regarding her details, but has had a longstanding ventral hernia following remote liver transplant surgery. Had not had a problem with nausea, vomiting, or bowel obstruction prior to the past few days. Radiographic evaluation infers obstruction is likely related to adhesions localized in left lower quadrant from her remote surgery and not her hernia. At this point, with nasogastric (NG) gastrointestinal (GI) drainage and kept nothing by mouth, she no longer has abdominal discomfort or vomiting and has been passing gas and some stool at this time. No history of GI bleeding. All other systems review is essentially negative. PAST MEDICAL HISTORY/PAST SURGICAL HISTORY: 1. Remote pneumonia. 2. Gastroesophageal reflux disease at least since 1999. 3. Primary biliary cirrhosis post liver transplantation, [place], September 2005. Has been free of any fever, chills, or night sweats. All other systems review is negative. MEDICATIONS: - atenolol 100 mg by mouth daily - amlodipine 10 mg daily - aspirin 81 mg daily - Plavix 75 mg daily (antiplatelet therapy currently on hold) - omeprazole 20 mg daily - tacrolimus 1 mg by mouth twice a day - mycophenolate mofetil 500 mg by mouth twice a day - ursodiol 300 mg by mouth three times a day - venlafaxine 75 mg by mouth twice a day - multivitamin one tablet daily ALLERGIES: None known. OTHER PAST MEDICAL HISTORY: 1. Remote colonoscopy was negative. 2. Remote excisional biopsy of tumor on her ear. PHYSICAL EXAMINATION: Pleasant elderly woman, slightly [id number], medium body build. Lying with the head of bed elevated 30 degrees quite comfortably. Currently has a nasogastric tube in place. VITAL SIGNS: Heart rate at 76 beats per minute (BPM) and regular, blood pressure 116/70 supine, 118/66 sitting with legs dependent (left arm; right arm IV), respiratory rate 16, oxygen saturation 92% on room air. Afebrile. Weight 146 pounds, height 62 inches, body mass index (BMI) 26.9. EYES: Normal conjunctivae without pallor or icterus. No petechiae. Senile arcus. No xanthelasma. ENT/MOUTH: Few missing teeth. Normal oral moisture. No central cyanosis. NECK: Trachea midline. Thyroid is not enlarged. Jugular veins were 1-2 cm above the sternal angle. RESPIRATORY: Well-healed sternotomy incision. Normal chest configuration and chest expansion. Good air entry over both lung jamil with no abnormal pulmonary adventitious sounds. CARDIOVASCULAR: Apical impulse at the midclavicular line, 5th intercostal space. S1 normal, S2 normal intensity. I could not hear S2 splitting. She has an S4 but no S3 gallop. Very soft systolic ejection murmur, grade perhaps 1/6, at the lower left sternal border without good radiation. No diastolic murmur or rub. Normal carotid upstrokes and volume with no bruits. Upper extremity femoral and pedal pulses were symmetrical and normal. No varicose veins or dependent edema. Abdominal aorta was not palpable. No abdominal bruits. GASTROINTESTINAL: Obvious well-healed trans upper abdominal incision related to her remote liver transplant surgery. Has an obvious localized ventral hernia with no more than minimal tenderness to deep palpation just lateral to the hernia in the lower right quadrant. Currently does have a few bowel sounds. Her rectal examination not indicated. No hepatosplenomegaly. MUSCULOSKELETAL: No obvious joint deformities. Normal muscular strength and tone for age. Normal spine curvature. Gait was not assessed in light of her IV and nasogastric tube. NEUROLOGIC/PSYCHIATRIC: Slightly reduced auditory acuity but bright, alert, and gave a lucid history. Eye, facial, extremity movements are symmetrical and normal. No abnormal movements. SKIN: No pallor, icterus, or ecchymotic lesions. Well-healed laceration in the middle of her forehead. Well-healed abdominal incision and sternotomy incision. INVESTIGATIONS: No chest x-ray was taken on this admission, but study from 11/06/2017 (at [facility]) reviewed independently shows obvious cardiomegaly with CT ratio 14.6, 28.9. Slightly unfolded thoracic aorta but no actual aneurysm. Well-visualized sternotomy wire sutures and vascular clips related to her bypass surgery. Pulmonary vasculature appeared to be normal. Raised right hemidiaphragm but no localized infiltrate or pleural effusion. Abdominal CT scan and pelvis do confirm an enlarged heart with evidence of left atrial enlargement. Left ventricular diameter upper limits of normal, as was the right ventricular diameter. Inferior vena cava was of normal size. Some calcification of the coronary arteries with visible graft. No pericardial effusion. No pleural effusions. Radiology reports high-grade small-bowel obstruction believed to be localized to the left lower quadrant due to adhesions. Separate supraumbilical ventral hernia containing a moderate amount of fat. EKG 08/09/2018 reviewed independently shows sinus rhythm at 65 BPM with left atrial conduction disturbance, perhaps borderline first-degree AV block and LVH by Mohsen criteria with strain pattern. QS pattern in III and aVF, in keeping with prior inferior wall myocardial infarction. Repolarization abnormalities not significantly changed from December 2016. Blood work: Hemoglobin on admission was 13.5. With IV fluid replacement therapy, this has dropped to 10.3 without visible bleeding. White blood cell count has remained normal. Platelet count has remained normal. Normal PT/INR and PTT. Admission chemistry showed normal electrolytes with BUN 15, creatinine 0.66, random glucose 139. Lactic acid was negative. Serum calcium and albumin were normal. Lipase and amylase were negative. SGOT was marginally elevated at 48. SGPT was normal. Alkaline phosphatase is marginally elevated 420. Total bilirubin normal. Magnesium level was slightly soft on her omeprazole therapy; however, I believe this is partially related to dilution, as her serum calcium at the same time was measured at 7.7, when it was actually normal on admission. IMPRESSION/PLAN: 1. Preoperative cardiac clearance: At this point, it does not appear that she will require surgical intervention for her small bowel obstruction. Dr. Souza intends to clamp her NG tube today and if she does not develop recurrent symptoms will be resuming her low-dose aspirin and Plavix after 24 hours. If she required surgical intervention, she would currently believed to be at optimal condition. She is actually now more than 9 months removed from her last stenting procedure, which was actually December 2016. October 2017 she only underwent balloon angioplasty. She has been completely free of symptomatic myocardial ischemia since that time. Her chief risk factors include the nature of the surgery intraperitoneal and her remote cardiac status. Estimated risk of myocardial infarction ([place]), heart failure, or malignant arrhythmia would be approximately 6.6%. Antiplatelet therapy presently on hold as mentioned, but remains on protective beta-cecile, atenolol. 2. Abnormal EKG: Tracing appearance not dramatically changed from earlier this year and primarily a reflection of her hypertensive heart disease in the but also of her remote inferior injury. 3. Coronary artery disease ([place] vessel)/post prior non-Q-wave myocardial infarction/post remote coronary artery bypass surgery/post coronary stenting December 2016 and percutaneous transluminal coronary angioplasty (PTCA) October 2017: As mentioned, on her current level of activity is limited primarily because of dyspnea. No chest, jaw, or arm effort-related symptoms to suggest myocardial ischemia. Currently followed by Dr. Bedolla, res[facility] feeder, [facility], on protective beta cecile, atenolol, aspirin, and Plavix. Previously on lisinopril. Switched to Norvasc since we saw her last 12 years ago. Not a candidate for statin therapy because of her liver transplant and need for immunosuppressive therapy with potentially risky interaction. 4. Hypertensive heart disease (benign without heart failure): Effort dyspnea, as mentioned, but no other symptoms or signs of congestion. Her current blood pressure would be considered optimally controlled on atenolol and amlodipine. Renal function is normal. We have encouraged continued modest salt restriction and regular aerobic exercise. We would be pleased to participate further in her care in hospital, but should she be able to be discharged in the next 24-48 hours without surgery, she will resume her customary cardiology care with Dr. Bedolla in [place].
[2018-08-10 22:00] VITALS: BP 130/75
[2018-08-11] MEDS: HEPARIN SOD (PORCINE) 5000 UNITS/ML VIAL SC SCH (05:12)
[2018-08-11] MEDS: PIPERACILLIN/TAZOBACTAM SOD 3.375 GM in D5W MINI-BAG PLUS 50 ML IV SCH ×4 (05:13→23:49)
[2018-08-11 05:54] LABS: HEMATOCRIT 33.8 % (36.0-47.0); HEMOGLOBIN 10.5 g/dl (12.0-15.5); MEAN CORPUSCULAR HEMOGLOBIN 29.4 pg (27.0-33.0); MEAN CORPUSCULAR HGB CONC 31.1 g/dl (32.0-36.5); MEAN CORPUSCULAR VOLUME 94.7 fl (80.0-96.0); PLATELET COUNT, AUTOMATED 128 10^3/uL (150-450); RED BLOOD COUNT 3.57 10^6/uL (4.00-5.40); WHITE BLOOD COUNT 4.9 10^3/uL (4.0-10.0)
[2018-08-11 06:00] VITALS: BP 124/66
[2018-08-11 06:19] LABS: BLOOD UREA NITROGEN 5 MG/DL (7-18); CALCIUM LEVEL 7.8 MG/DL (8.8-10.2); CARBON DIOXIDE LEVEL 22 MEQ/L (21-32); CHLORIDE LEVEL 113 MEQ/L (98-107); CREATININE FOR GFR 0.65 MG/DL (0.55-1.30); GLOMERULAR FILTRATION RATE > 60.0 (>39); GLUCOSE, FASTING 132 MG/DL (70-100); MAGNESIUM LEVEL 2.1 MG/DL (1.8-2.4); POTASSIUM SERUM 3.8 MEQ/L (3.5-5.1); SODIUM LEVEL 144 MEQ/L (136-145)
--- NOTE | 2018-08-11 09:03 | HPE ---
DATE: 08/09/2018 CHIEF COMPLAINT: Abdominal pain, nausea and vomiting. HISTORY OF PRESENT ILLNESS: The patient is a 72-year-old female that began the morning of 08/09 she had some nausea and dry heaves associated with it and she was still having some slight small bowel movements. The pain started off diffuse, she described as sharp and crampy, but she has never had any pains like this before. After few hours of the pain slightly getting worse and not having any improvement, she is brought into emergency room for evaluation. She denies any fevers or chills. No previous symptoms like this in the past. No problems with bowel obstructions in the past. She does have an umbilical hernia she has had for many years status post liver transplant surgery but it has never caused her any problems and is still not causing her any tenderness. In the emergency room (ER) she had signs of a high-grade obstruction in the left lower abdomen, however, her labs were normal so I was called to evaluate her for admission for the bowel obstruction. She already has an nasogastric (NG) tube in place to put out about 500 mL so far of brown fluid. Her symptoms are already improving. Her nausea and vomiting and dry heaves have subsided. The abdominal pains improved and she has no current complaints. PAST MEDICAL HISTORY: Primary biliary cirrhosis, liver transplant, heart disease, hypertension, anxiety, gastroesophageal reflux disease, abdominal wall hernia, previous myocardial infarctions (MIs), status post bypass graft. PAST SURGICAL HISTORY: Triple bypass in 97, heart stents this year in 2018, liver transplant 2007. ALLERGIES: None. HOME MEDICATIONS: Please see medical record. FAMILY HISTORY: Noncontributory. SOCIAL HISTORY: Denies drug, alcohol, of tobacco abuse. REVIEW OF SYSTEMS: Pertinent positives as stated in history of present illness. PHYSICAL EXAMINATION GENERAL: Alert and oriented times three. No acute distress. VITALS: Temperature 96.8, pulse 73, respirations 18, blood pressure 132/70, pulse ox 93% room air. HEENT: Pupils equal round and react to light and accommodation. HEART: S1, S2 regular rate and rhythm. LUNGS: Clear auscultation bilaterally. ABDOMEN: Soft, slightly distended, slight tenderness to palpation. No rebounding, guarding or rigidity. EXTREMITIES: No, cyanosis or edema. LABORATORY DATA: White count 9.3, hemoglobin 13.5, platelets 194, potassium 4.1, creatinine 0.66, lactic acid 0.9. IMAGING: CT abdomen and pelvis shows high-grade small bowel obstruction with transition to the left lower quadrant likely due to adhesions, small amount of free fluid in the pelvis. No signs of any free air or perforation. There is also a fat containing supraumbilical ventral hernia with a defect measuring about 2.7 cm. ASSESSMENT AND PLAN: The patient 72-year-old female with complicated medical history of myocardial infarction ([place]), coronary artery disease, liver transplant currently presenting with a high-grade small bowel obstruction likely secondary to adhesions. Recommendation at this time is to continue with nonsurgical management. She has already improving with NG tube decompression. Her labs are normal. Her abdomen is non-peritoneal, therefore, we will give her at least 72 hours of medical management to see if this will improve her obstruction. If she starts to develop increasing pain, fevers, leukocytosis or lactic acidosis then we will consider urgent surgical intervention. However, if she continues to improve and then we will slowly remove the NG tube, advance her diet, and she can be discharged home. As far as the umbilical hernia is concerned it does not bother her, but she would like to look into getting it fixed in the future. At this point I would recommend that she wait until she is at least a year out from her coronary stents, at that time she can followup with cardiology and if she is cleared and then we can discuss elective laparoscopic repair. All of her questions were answered and she will be admitted overnight for observation.
[2018-08-11] MEDS: PANTOPRAZOLE 40MG INJ (PROTONIX) (C9113) IV SCH (09:07)
[2018-08-11] MEDS: KCL 20MEQ IN D5/0.45NS 1000ML 1,000 ML IV SCH (09:07)
[2018-08-11] MEDS: TACROLIMUS 1 MG CAP (J7507) PO SCH ×2 (09:08→21:11)
[2018-08-11] MEDS: amLODIPine 10 MG TAB PO SCH (09:08)
[2018-08-11] MEDS: VENLAFAXINE 37.5 MG TAB PO SCH ×2 (09:08→21:11)
[2018-08-11] MEDS: MYCOPHENOLATE MOFETIL 250 MG CAP (J7517) PO SCH ×2 (09:08→21:11)
[2018-08-11] MEDS: URSODIOL 300 MG CAP PO SCH ×3 (09:08→21:11)
[2018-08-11] MEDS: ATENOLOL 50 MG TAB PO SCH (09:08)
--- NOTE | 2018-08-11 11:10 | IPNPDOC ---
Text Note Date of Service The patient was seen on 08/11/18. NOTE No acute events overnight. Denies nausea, emesis, fevers, or pains. Passing lots of flatus. Tolerating CLQ diet with the NGT clamped. VSSAF NAD abd - soft, nt, nd labs - below A) 72y/o female with SBO secondary to likely adhesions is resolving CAD s/p liver transplant P) d/c NGT replace electrolytes ambulate will restart ASA and plavix plan on d/c in am if tolerating diet Akash Souza DO VS,Fishbone, I+O VS, Fishbone, I+O Laboratory Tests 08/11/18 05:36 Red Blood Count 3.57 L, Mean Corpuscular Volume 94.7, Mean Corpuscular Hemoglobin 29.4, Mean Corpuscular Hemoglobin Concent 31.1 L, Red Cell Distribution Width 17.6 H, Calcium Level 7.8 L Vital Signs Date Time Temp Pulse Resp B/P (MAP) Pulse Ox O2 Delivery O2 Flow Rate FiO2 08/11/18 09:08 59 124/66 08/11/18 06:00 98.2 18 96 Room Air I&O- Last 24 Hours up to 6 AM 08/11/18 06:00 Intake Total 2810 ml Balance 2810 ml AYAKA SOUZA DO Aug 11, 2018 11:10
[2018-08-11] MEDS: ASPIRIN 81 MG ENTERIC TAB PO SCH (11:57)
[2018-08-11] MEDS: CLOPIDOGREL 75 MG TAB PO SCH (11:57)
[2018-08-11 14:00] VITALS: BP 131/63
--- NOTE | 2018-08-11 21:24 | IPN ---
DATE: 08/11/2018 Jessika is seen on 4 [facility] on surgical service for a bowel obstruction, doing well. I restarted her dual antiplatelet therapy yesterday, but this was postponed until today by cardiology. Her stomach is decompressed. It looks like her nasogastric (NG) tube can probably come out today. VITAL SIGNS: Stable. LUNGS: Clear. HEART: Regular rate and rhythm. ABDOMEN: Soft. Less distended. Slightly tender inferiorly. LABORATORIES: Complete blood count (CBC) unremarkable. Complete metabolic profile (CMP) unremarkable. Potassium 3.8. Magnesium up to 2.1. IMPRESSION: 1. Coronary artery disease. Aspirin and Plavix restarted. 2. Small bowel obstruction. Refer to surgery. Looks like her nasogastric tube can come out today. 3. History of liver transplant. Continue antirejection drugs. Medical consult will sign off. Call if needed.
[2018-08-11 22:00] VITALS: BP 148/65
[2018-08-12 05:51] LABS: HEMATOCRIT 35.3 % (36.0-47.0); HEMOGLOBIN 11.2 g/dl (12.0-15.5); MEAN CORPUSCULAR HEMOGLOBIN 29.6 pg (27.0-33.0); MEAN CORPUSCULAR HGB CONC 31.7 g/dl (32.0-36.5); MEAN CORPUSCULAR VOLUME 93.4 fl (80.0-96.0); PLATELET COUNT, AUTOMATED 147 10^3/uL (150-450); RED BLOOD COUNT 3.78 10^6/uL (4.00-5.40)
[2018-08-12 06:00] VITALS: BP 135/74
[2018-08-12 06:17] LABS: BLOOD UREA NITROGEN 3 MG/DL (7-18); CALCIUM LEVEL 8.1 MG/DL (8.8-10.2); CARBON DIOXIDE LEVEL 21 MEQ/L (21-32); CHLORIDE LEVEL 111 MEQ/L (98-107); CREATININE FOR GFR 0.55 MG/DL (0.55-1.30); GLOMERULAR FILTRATION RATE > 60.0 (>39); GLUCOSE, FASTING 119 MG/DL (70-100); MAGNESIUM LEVEL 1.8 MG/DL (1.8-2.4); POTASSIUM SERUM 3.6 MEQ/L (3.5-5.1); SODIUM LEVEL 140 MEQ/L (136-145)
[2018-08-12] MEDS: PIPERACILLIN/TAZOBACTAM SOD 3.375 GM in D5W MINI-BAG PLUS 50 ML IV SCH (06:20)
[2018-08-12] MEDS: TACROLIMUS 1 MG CAP (J7507) PO SCH (09:26)
[2018-08-12] MEDS: VENLAFAXINE 37.5 MG TAB PO SCH (09:26)
[2018-08-12 09:28] VITALS: BP 135/64
[2018-08-12] MEDS: amLODIPine 10 MG TAB PO SCH (09:28)
[2018-08-12] MEDS: ATENOLOL 50 MG TAB PO SCH (09:28)
[2018-08-12] MEDS: CLOPIDOGREL 75 MG TAB PO SCH (09:30)
[2018-08-12] MEDS: ASPIRIN 81 MG ENTERIC TAB PO SCH (09:30)
[2018-08-12] MEDS: PANTOPRAZOLE 40MG INJ (PROTONIX) (C9113) IV SCH (09:31)
[2018-08-12] MEDS: MYCOPHENOLATE MOFETIL 250 MG CAP (J7517) PO SCH (11:09)
[2018-08-12] MEDS: URSODIOL 300 MG CAP PO SCH (11:09)
--- NOTE | 2018-08-12 12:03 | IPNPDOC ---
Subjective Date Seen The patient was seen on 08/12/18. Subjective Chief Complaint/HPI Patient seen and examined sitting up in bed. Denies fevers, chills, chest pain, shortness of breath, abdominal pain, nausea, vomiting, diarrhea, constipation. Is tolerating full liquids diet. Spoke to Dr. Souza this morning who reports that he will be discharging patient on a low residual diet. States that patient has improved and does not require surgery. General: Reports: Normal Appetite Constitutional: Denies: Chills, Fever ENT: Denies: Head Aches Skin: Denies: Rash Pulmonary: Denies: Dyspnea, Cough Cardiovascular: Denies: Chest Pain Gastrointestinal: Denies: Nausea, Vomiting, Abdominal Pain, Diarrhea, Constipation Genitourinary: Denies: Dysuria Hematologic: Denies: Bleeding Excessively Endocrine: Denies: Heat Intolerance, Cold Intolerance Musculoskeletal: Denies: Joint Pain, Muscle Pain Neurological: Denies: Weakness, Confusion Psych: Reports: Mood Normal Objective Physical Examination General Exam: Positive: Alert, Cooperative, No Acute Distress Eye Exam: Positive: Conjunctiva & lids normal; Negative: Sclera icteric ENT Exam: Positive: Atraumatic Neck Exam: Positive: Supple; Negative: JVD Chest Exam: Positive: Clear to auscultation, Normal air movement; Negative: Rales, Rhonchi, Wheezing Heart Exam: Positive: Rate Normal, Regular Rhythm, Normal S1, Normal S2; Negative: Murmurs Abdomen Exam: Positive: Normal bowel sounds, Soft, Other (positive umbilical hernia that is reducible to palpation. Nontender to palpation.); Negative: Tenderness Extremity Exam: Negative: Clubbing, Cyanosis, Edema Skin Exam: Positive: Nl turgor and temperature; Negative: Rash Neuro Exam: Positive: Normal Speech Psych Exam: Positive: Mental status NL, Mood NL, Oriented x 3 Assessment /Plan Problems (1) Coronary artery disease Status: Chronic Problem Text: 08/12: Dual antiplatelet therapy was restarted yesterday: Aspirin and Plavix. (2) History of liver transplant Status: Chronic Problem Text: 08/12: Patient reported to me that she had a liver transplant about 11 years ago for history of primary biliary cirrhosis. Continue immunosuppressive therapy regimen with tacrolimus 1 mg twice a day and mycophenolate mofetil 500 mg twice a day. (3) Small bowel obstruction Status: Resolved Problem Text: 08/12: Patient was admitted on 08/09/2018 for high-grade small bowel obstruction likely secondary to adhesions. Patient has improved with conservative measures as per Dr. Souza's treatment. Small bowel obstruction has been relieved. Fortunately, surgical intervention was not necessary. She is now without an NG tube and her bowel has been decompressed. She had been advanced to full liquids diet. Spoke to Dr. Souza today who reports he will be discharging patient today and on a low residual diet. (4) Umbilical hernia Status: Chronic Problem Text: 08/12: Patient had an umbilical hernia that was reducible and nontender to palpation exam today. Apparently, is asymptomatic to patient. Patient would like to get this fixed in the future. Dr. Souza had recommended to her to wait at least a year from her coronary stents procedure so she could follow up with Cardiology to be cleared prior to a elective laparoscopic repair. She was in agreement with this plan. Plan/VTE VTE Prophylaxis Ordered?: Yes (TEDs and SCDs) VS, I&O, 24H, Fishbone Vital Signs/I&O Vital Signs Date Time Temp Pulse Resp B/P (MAP) Pulse Ox O2 Delivery O2 Flow Rate FiO2 08/12/18 09:28 68 135/64 08/12/18 06:00 98.3 18 97 Room Air I&O- Last 24 Hours up to 6 AM 08/12/18 06:00 Intake Total 1835 ml Output Total 0 ml Balance 1835 ml Laboratory Data 24H LABS Laboratory Tests 2 08/12/18 05:38: Nucleated Red Blood Cells % (auto) 0.0, Anion Gap 8, Glomerular Filtration Rate > 60.0, Blood Urea Nitrogen 3L, Creatinine 0.55, Sodium Level 140, Potassium Level 3.6, Chloride Level 111H, Carbon Dioxide Level 21, Calcium Level 8.1L, Magnesium Level 1.8 CBC/BMP Laboratory Tests 08/12/18 05:38 Red Blood Count 3.78 L, Mean Corpuscular Volume 93.4, Mean Corpuscular Hem oglobin 29.6, Mean Corpuscular Hemoglobin Concent 31.7 L, Red Cell Distribution Width 17.4 H, Calcium Level 8.1 L GME ATTESTATION GME ATTESTATION My faculty preceptor for this patient encounter was Dr. Klaudia Dotson, and was physically present during the encounter and was fully available. All aspects of the patient interview, examination, medical decision making process, and medical care plan development were reviewed and approved by the faculty prec eptor. The faculty preceptor is aware and concurs with the plan as stated in the body of this note and will attest to such by his/her cosignature. TONY HURST DO Aug 12, 2018 12:03
--- NOTE | 2018-08-13 11:55 | DSES ---
DATE OF ADMISSION: 08/09/2018 DATE OF DISCHARGE: 08/12/2018 ADMISSION DIAGNOSIS: Small-bowel obstruction. DISCHARGE DIAGNOSIS Small-bowel obstruction. HOSPITAL COURSE: The patient is a 72-year-old female with history of coronary disease and liver transplant who presents with sudden onset of abdominal pain, found to have high-grade small-bowel obstruction on CT on admission. She was treated medically with nasogastric (NG) tube decompression, intravenous (IV) fluids. Within the first 12 hours after decompression she was already passing stools and flatus. NG output was very minimal. Her NG tube was clamped on August 10, and then later in the evening on August 10 she was also started on a clear liquid diet. When I saw her in the morning of August 11, she was tolerating a clear liquid diet, still having bowel movements and flatus. Abdominal pain was resolved. NG tube was removed, and she was advanced to full liquid diet. Today she is still continuing to improve. No pains. No nausea, vomiting. Tolerating diet. Plan is to discharge home today on a low-residue diet and keep it that way for 1 week. After a week she can return to her normal diet. She does have this large incisional hernia in her midabdomen. Plan is to have her followup me in the office in about 3 months after she has been cleared from cardiology to be able to stop her blood thinners from her cardiac stent placement. We will discuss laparoscopic repair of her hernia at the time, and during that procedure I will plan to do laparoscopic lysis of adhesions to hopefully prevent the small-bowel obstruction from recurring in the future. If, however, she does show signs of obstruction within the next few months, we will attempt to decompress her again but also plan on doing the a laparoscopic lysis of adhesions while she is inpatient during that stay. This has been discussed in detail with her. She understands and plans to discharge home today. She will followup me in the office in 3 months.
== END 2018-08-12 12:26 | disposition home or self-care (01) | DRG 389 ==
LOC: M ED 15:06 → M ED INP 20:23 → M MSPAV 08-10 02:05
PROVIDERS: ADMIT Surgery; ATTEND Surgery
DX: K56.50 Intestinal adhesions [bands], unspecified as to partial versus complete obstruction (principal); Z94.4 Liver transplant status; I11.9 Hypertensive heart disease without heart failure; I25.10 Atherosclerotic heart disease of native coronary artery without angina pectoris; K43.2 Incisional hernia without obstruction or gangrene; K21.9 Gastro-esophageal reflux disease without esophagitis; F41.9 Anxiety disorder, unspecified; K74.69 Other cirrhosis of liver; I25.2 Old myocardial infarction; Z95.2 Presence of prosthetic heart valve; Z79.899 Other long term (current) drug therapy; Z79.82 Long term (current) use of aspirin; K42.9 Umbilical hernia without obstruction or gangrene

== ENCOUNTER → 2018-09-16 | Outpatient (REF) | payer MEDICARE, MEDICAID, OTHER ==
[~2018-09-16] MED LIST changes: -AMLO10TA4 PO; +AMLO10TA5 PO; +MULT1CHW PO; +OCUVTAB PO; +PLAV1TAB2 PO
[2018-09-17 11:38] LABS: HEMATOCRIT 37.3 % (36.0-47.0); MEAN CORPUSCULAR HEMOGLOBIN 30.2 pg (27.0-33.0); MEAN CORPUSCULAR HGB CONC 32.2 g/dl (32.0-36.5); MEAN CORPUSCULAR VOLUME 93.7 fl (80.0-96.0); PLATELET COUNT, AUTOMATED 167 10^3/uL (150-450); RED BLOOD COUNT 3.98 10^6/uL (4.00-5.40); WHITE BLOOD COUNT 8.8 10^3/uL (4.0-10.0)
[2018-09-17 11:45] LABS: ALBUMIN 3.7 GM/DL (3.2-5.2); ALT/SGPT 45 U/L (12-78); BILIRUBIN,TOTAL 0.4 MG/DL (0.2-1.0); BLOOD UREA NITROGEN 16 MG/DL (7-18); CARBON DIOXIDE LEVEL 27 MEQ/L (21-32); CHLORIDE LEVEL 102 MEQ/L (98-107); CREATININE FOR GFR 0.72 MG/DL (0.55-1.30); GAMMA GLUTAMYLTRANSPEPTIDASE 194 U/L (5-55); GLOMERULAR FILTRATION RATE > 60.0 (>39); GLUCOSE, FASTING 118 MG/DL (70-100); MAGNESIUM LEVEL 1.6 MG/DL (1.8-2.4); POTASSIUM SERUM 4.1 MEQ/L (3.5-5.1); SODIUM LEVEL 138 MEQ/L (136-145); TOTAL PROTEIN 7.7 GM/DL (6.4-8.2)
== END ==
LOC: M LABDRAWC 11:08
PROVIDERS: ATTEND Nurse Practitioner Adult Health
DX: Z94.4 Liver transplant status (principal)

== ENCOUNTER → 2018-12-27 | Outpatient (REF) | payer MEDICARE, MEDICAID, OTHER ==
[2018-12-27 18:39] LABS: HEMATOCRIT 38.7 % (36.0-47.0); HEMOGLOBIN 12.5 g/dl (12.0-15.5); MEAN CORPUSCULAR HEMOGLOBIN 31.6 pg (27.0-33.0); MEAN CORPUSCULAR HGB CONC 32.3 g/dl (32.0-36.5); PLATELET COUNT, AUTOMATED 155 10^3/uL (150-450); RED BLOOD COUNT 3.95 10^6/uL (4.00-5.40); WHITE BLOOD COUNT 8.3 10^3/uL (4.0-10.0)
[2018-12-27 18:42] LABS: ALBUMIN 3.5 GM/DL (3.2-5.2); ALT/SGPT 74 U/L (12-78); BILIRUBIN,TOTAL 0.6 MG/DL (0.2-1.0); BLOOD UREA NITROGEN 19 MG/DL (7-18); CALCIUM LEVEL 8.9 MG/DL (8.8-10.2); CARBON DIOXIDE LEVEL 27 MEQ/L (21-32); CHLORIDE LEVEL 104 MEQ/L (98-107); CREATININE FOR GFR 0.72 MG/DL (0.55-1.30); GAMMA GLUTAMYLTRANSPEPTIDASE 304 U/L (5-55); GLOMERULAR FILTRATION RATE > 60.0 (>39); GLUCOSE, FASTING 131 MG/DL (70-100); MAGNESIUM LEVEL 1.6 MG/DL (1.8-2.4); POTASSIUM SERUM 4.1 MEQ/L (3.5-5.1); SODIUM LEVEL 138 MEQ/L (136-145); TOTAL PROTEIN 7.9 GM/DL (6.4-8.2)
== END ==
LOC: M LAB REF 17:43
PROVIDERS: ATTEND Internal Medicine Gastroenterology
DX: Z94.4 Liver transplant status (principal)

== ENCOUNTER → 2019-01-16 | Outpatient (REF) | payer MEDICARE, OTHER, MEDICAID ==
[2019-01-16 18:29] LABS: ALBUMIN 3.5 GM/DL (3.2-5.2); ALT/SGPT 50 U/L (12-78); BILIRUBIN,TOTAL 0.5 MG/DL (0.2-1.0); BLOOD UREA NITROGEN 17 MG/DL (7-18); CALCIUM LEVEL 9.7 MG/DL (8.8-10.2); CARBON DIOXIDE LEVEL 24 MEQ/L (21-32); CHLORIDE LEVEL 106 MEQ/L (98-107); CREATININE FOR GFR 0.77 MG/DL (0.55-1.30); GAMMA GLUTAMYLTRANSPEPTIDASE 261 U/L (5-55); GLOMERULAR FILTRATION RATE > 60.0 (>39); GLUCOSE, FASTING 151 MG/DL (70-100); MAGNESIUM LEVEL 1.3 MG/DL (1.8-2.4); POTASSIUM SERUM 4.2 MEQ/L (3.5-5.1); SODIUM LEVEL 140 MEQ/L (136-145); TOTAL PROTEIN 7.9 GM/DL (6.4-8.2)
[2019-01-16 18:39] LABS: HEMATOCRIT 40.9 % (36.0-47.0); HEMOGLOBIN 13.3 g/dl (12.0-15.5); MEAN CORPUSCULAR HEMOGLOBIN 32.6 pg (27.0-33.0); MEAN CORPUSCULAR HGB CONC 32.5 g/dl (32.0-36.5); MEAN CORPUSCULAR VOLUME 100.2 fl (80.0-96.0); PLATELET COUNT, AUTOMATED 143 10^3/uL (150-450); RED BLOOD COUNT 4.08 10^6/uL (4.00-5.40)
== END ==
LOC: M LABDRAWC 17:22
PROVIDERS: ATTEND Nurse Practitioner Adult Health
DX: Z94.4 Liver transplant status (principal)

== ENCOUNTER → 2019-01-17 | Outpatient (CLI) | payer MEDICARE, OTHER, MEDICAID ==
[~2019-01-17] MED LIST changes: +PROHANCE 279.3MG/ML 15ML VIAL (A9576) As Ordered ONE
--- NOTE | 2019-01-18 07:31 | REP ---
MRI LIVER WITH AND WITHOUT CONTRAST WITH MRCP: Multiple sequences obtained of the liver in the axial and coronal planes prior to and following the intravenous administration of 13 mL ProHance. In addition MRCP is accomplished utilizing multiple heavily T2-weighted sequences in the axial and coronal planes with MIP reconstruction images. The studies are extremely limited due to patient's inability suspend respiration sufficiently. There is a history of liver transplant. Liver parenchyma demonstrates normal signal and enhancement homogeneously. No focal abnormalities are seen. Patent hepatic artery and portal veins are noted as well as patent hepatic veins with no filling defects. The spleen is unremarkable as are the adrenals and pancreas. Parapelvic cyst of the right kidney measures approximately 3.5 x 2.5 cm. There is no hydronephrosis bilaterally. I do not see adenopathy in the visualized abdomen, nor is there evidence of free fluid. 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 MRCP images show normal caliber of common bile duct, common hepatic duct and intrahepatic ducts. There is no evidence of choledocholithiasis. Pancreatic duct is normal in caliber. IMPRESSION: Unremarkable appearance of liver transplant with no abnormality identified on this limited MRI. MRI is limited due to patient's inability to suspend respirations. There is also no biliary abnormality identified. 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 Parapelvic cyst of the right kidney is again noted. This is unchanged since the prior CT of 08/09/2018. Electronically Signed by Johnathan Bond MD 01/21/2019 09:55 A
== END ==
LOC: M RAD 14:41
DX: Z94.4 Liver transplant status (principal)
CPT/HCPCS: 74181; 74183; A9576

== ENCOUNTER → 2019-01-28 | Outpatient (REF) | payer MEDICARE, OTHER, MEDICAID ==
[~2019-01-28] MED LIST changes: -PROHANCE 279.3MG/ML 15ML VIAL (A9576) As Ordered ONE
[2019-01-29 12:43] LABS: HEMOGLOBIN 12.2 g/dl (12.0-15.5); MEAN CORPUSCULAR HEMOGLOBIN 31.7 pg (27.0-33.0); MEAN CORPUSCULAR HGB CONC 32.1 g/dl (32.0-36.5); MEAN CORPUSCULAR VOLUME 98.7 fl (80.0-96.0); PLATELET COUNT, AUTOMATED 158 10^3/uL (150-450); RED BLOOD COUNT 3.85 10^6/uL (4.00-5.40); WHITE BLOOD COUNT 7.5 10^3/uL (4.0-10.0)
[2019-01-29 13:03] LABS: ALBUMIN 3.4 GM/DL (3.2-5.2); ALT/SGPT 63 U/L (12-78); BILIRUBIN,TOTAL 0.4 MG/DL (0.2-1.0); BLOOD UREA NITROGEN 15 MG/DL (7-18); CALCIUM LEVEL 8.8 MG/DL (8.8-10.2); CARBON DIOXIDE LEVEL 24 MEQ/L (21-32); CHLORIDE LEVEL 106 MEQ/L (98-107); CREATININE FOR GFR 0.82 MG/DL (0.55-1.30); GAMMA GLUTAMYLTRANSPEPTIDASE 317 U/L (5-55); GLOMERULAR FILTRATION RATE > 60.0 (>39); GLUCOSE, FASTING 117 MG/DL (70-100); MAGNESIUM LEVEL 2.4 MG/DL (1.8-2.4); SODIUM LEVEL 139 MEQ/L (136-145); TOTAL PROTEIN 7.8 GM/DL (6.4-8.2)
== END ==
LOC: M LABDRAWC 11:17
PROVIDERS: ATTEND Nurse Practitioner Adult Health
DX: Z94.4 Liver transplant status (principal)

== ENCOUNTER → 2019-02-24 | Outpatient (REF) | payer MEDICARE, OTHER, MEDICAID ==
[~2019-02-24] MED LIST changes: -OMEP20CA3 PO; +OMEP20CA4 PO
[2019-02-24 19:29] LABS: ALBUMIN 3.2 GM/DL (3.2-5.2); ALT/SGPT 39 U/L (12-78); BILIRUBIN,TOTAL 0.4 MG/DL (0.2-1.0); BLOOD UREA NITROGEN 15 MG/DL (7-18); CALCIUM LEVEL 8.6 MG/DL (8.8-10.2); CARBON DIOXIDE LEVEL 24 MEQ/L (21-32); CHLORIDE LEVEL 109 MEQ/L (98-107); CREATININE FOR GFR 0.72 MG/DL (0.55-1.30); GLOMERULAR FILTRATION RATE > 60.0 (>39); GLUCOSE, FASTING 130 MG/DL (70-100); SODIUM LEVEL 140 MEQ/L (136-145); TOTAL PROTEIN 7.5 GM/DL (6.4-8.2)
[2019-02-24 20:27] LABS: HEMATOCRIT 35.6 % (36.0-47.0); HEMOGLOBIN 11.5 g/dl (12.0-15.5); MEAN CORPUSCULAR HEMOGLOBIN 31.9 pg (27.0-33.0); MEAN CORPUSCULAR HGB CONC 32.3 g/dl (32.0-36.5); MEAN CORPUSCULAR VOLUME 98.9 fl (80.0-96.0); PLATELET COUNT, AUTOMATED 155 10^3/uL (150-450); WHITE BLOOD COUNT 7.4 10^3/uL (4.0-10.0)
== END ==
LOC: M LABDRAWC 17:28
PROVIDERS: ATTEND Nurse Practitioner Adult Health
DX: Z94.4 Liver transplant status (principal); Z79.899 Other long term (current) drug therapy

== ENCOUNTER → 2019-03-07 | Outpatient (REF) | payer MEDICARE, MEDICAID ==
[2019-03-07 17:18] LABS: HEMATOCRIT 35.4 % (36.0-47.0); HEMOGLOBIN 11.5 g/dl (12.0-15.5); MEAN CORPUSCULAR HEMOGLOBIN 33.1 pg (27.0-33.0); MEAN CORPUSCULAR HGB CONC 32.5 g/dl (32.0-36.5); PLATELET COUNT, AUTOMATED 149 10^3/uL (150-450); RED BLOOD COUNT 3.47 10^6/uL (4.00-5.40); WHITE BLOOD COUNT 7.1 10^3/uL (4.0-10.0)
[2019-03-07 17:23] LABS: ALBUMIN 3.3 GM/DL (3.2-5.2); ALT/SGPT 42 U/L (12-78); BILIRUBIN,TOTAL 0.5 MG/DL (0.2-1.0); BLOOD UREA NITROGEN 12 MG/DL (7-18); CALCIUM LEVEL 8.4 MG/DL (8.8-10.2); CARBON DIOXIDE LEVEL 24 MEQ/L (21-32); CHLORIDE LEVEL 108 MEQ/L (98-107); CREATININE FOR GFR 0.82 MG/DL (0.55-1.30); GLOMERULAR FILTRATION RATE > 60.0 (>39); GLUCOSE, FASTING 119 MG/DL (70-100); POTASSIUM SERUM 3.8 MEQ/L (3.5-5.1); SODIUM LEVEL 140 MEQ/L (136-145); TOTAL PROTEIN 7.5 GM/DL (6.4-8.2)
== END ==
LOC: M LABDRAWC 16:32
PROVIDERS: ATTEND Nurse Practitioner Adult Health
DX: Z79.899 Other long term (current) drug therapy (principal)

== ENCOUNTER → 2019-03-28 | Outpatient (REF) | payer MEDICARE, MEDICAID ==
[2019-03-28 17:11] LABS: HEMATOCRIT 34.8 % (36.0-47.0); HEMOGLOBIN 11.3 g/dl (12.0-15.5); MEAN CORPUSCULAR HGB CONC 32.5 g/dl (32.0-36.5); MEAN CORPUSCULAR VOLUME 98.6 fl (80.0-96.0); PLATELET COUNT, AUTOMATED 164 10^3/uL (150-450); RED BLOOD COUNT 3.53 10^6/uL (4.00-5.40)
[2019-03-28 17:27] LABS: ALBUMIN 3.2 GM/DL (3.2-5.2); ALT/SGPT 28 U/L (12-78); BILIRUBIN,TOTAL 0.4 MG/DL (0.2-1.0); BLOOD UREA NITROGEN 17 MG/DL (7-18); CALCIUM LEVEL 8.7 MG/DL (8.8-10.2); CARBON DIOXIDE LEVEL 26 MEQ/L (21-32); CHLORIDE LEVEL 107 MEQ/L (98-107); CREATININE FOR GFR 0.73 MG/DL (0.55-1.30); GLOMERULAR FILTRATION RATE > 60.0 (>39); GLUCOSE, FASTING 149 MG/DL (70-100); POTASSIUM SERUM 3.9 MEQ/L (3.5-5.1); SODIUM LEVEL 141 MEQ/L (136-145); TOTAL PROTEIN 7.1 GM/DL (6.4-8.2)
== END ==
LOC: M LABDRAWC 16:09
PROVIDERS: ATTEND Nurse Practitioner Adult Health
DX: Z94.4 Liver transplant status (principal); Z79.899 Other long term (current) drug therapy

== ENCOUNTER → 2019-08-15 | Outpatient (REF) | payer MEDICARE, MEDICAID, OTHER ==
[~2019-08-15] MED LIST changes: +OMEP-172 PO; -OMEP20CA4 PO
[2019-08-15 16:26] LABS: HEMATOCRIT 40.6 % (36.0-47.0); HEMOGLOBIN 12.2 g/dl (12.0-15.5); MEAN CORPUSCULAR HEMOGLOBIN 28.8 pg (27.0-33.0); PLATELET COUNT, AUTOMATED 128 10^3/uL (150-450); RED BLOOD COUNT 4.23 10^6/uL (4.00-5.40); WHITE BLOOD COUNT 6.8 10^3/uL (4.0-10.0)
[2019-08-15 16:37] LABS: ALBUMIN 3.4 GM/DL (3.2-5.2); BILIRUBIN,TOTAL 0.4 MG/DL (0.2-1.0); CALCIUM LEVEL 8.9 MG/DL (8.8-10.2); CREATININE FOR GFR 1.65 MG/DL (0.55-1.30); GLOMERULAR FILTRATION RATE 32.4 (>39); POTASSIUM SERUM 4.1 MEQ/L (3.5-5.1); TOTAL PROTEIN 7.8 GM/DL (6.4-8.2)
== END ==
LOC: M LABDRAWC 16:10
PROVIDERS: ATTEND Nurse Practitioner Adult Health
DX: Z94.4 Liver transplant status (principal); Z79.899 Other long term (current) drug therapy

== ENCOUNTER → 2020-01-29 | Outpatient (REF) | payer MEDICARE, MEDICAID ==
[~2020-01-29] MED LIST changes: -OMEP-172 PO; +OMEP1CAP73 PO
[2020-01-29 16:42] LABS: HEMATOCRIT 36.6 % (36.0-47.0); HEMOGLOBIN 11.9 g/dl (12.0-15.5); MEAN CORPUSCULAR HEMOGLOBIN 32.4 pg (27.0-33.0); MEAN CORPUSCULAR HGB CONC 32.5 g/dl (32.0-36.5); MEAN CORPUSCULAR VOLUME 99.7 fl (80.0-96.0); PLATELET COUNT, AUTOMATED 132 10^3/uL (150-450); RED BLOOD COUNT 3.67 10^6/uL (4.00-5.40)
[2020-01-29 16:49] LABS: ALBUMIN 3.6 GM/DL (3.2-5.2); BILIRUBIN,TOTAL 0.4 MG/DL (0.2-1.0); CALCIUM LEVEL 8.7 MG/DL (8.8-10.2); CREATININE FOR GFR 1.58 MG/DL (0.55-1.30); GLOMERULAR FILTRATION RATE 33.9 (>39); POTASSIUM SERUM 4.8 MEQ/L (3.5-5.1); TOTAL PROTEIN 8.1 GM/DL (6.4-8.2)
== END ==
LOC: M LABDRAWC 16:04
PROVIDERS: ATTEND Nurse Practitioner Adult Health
DX: Z94.4 Liver transplant status (principal); Z79.899 Other long term (current) drug therapy

== ENCOUNTER → 2020-02-16 | Outpatient (REF) | payer MEDICARE, MEDICAID ==
[~2020-02-16] MED LIST changes: -AMLO10TA5 PO; +AMLO1TAB25 PO; +ASPI-546 PO; -ASPI1TAB15 PO
[2020-02-16 17:54] LABS: HEMATOCRIT 37.6 % (36.0-47.0); MEAN CORPUSCULAR HGB CONC 31.9 g/dl (32.0-36.5); MEAN CORPUSCULAR VOLUME 100.3 fl (80.0-96.0); PLATELET COUNT, AUTOMATED 122 10^3/uL (150-450); RED BLOOD COUNT 3.75 10^6/uL (4.00-5.40)
[2020-02-16 17:59] LABS: ALBUMIN 3.6 GM/DL (3.2-5.2); BILIRUBIN,TOTAL 0.4 MG/DL (0.2-1.0); CALCIUM LEVEL 8.7 MG/DL (8.8-10.2); CREATININE FOR GFR 1.24 MG/DL (0.55-1.30); GLOMERULAR FILTRATION RATE 44.9 (>39); POTASSIUM SERUM 4.6 MEQ/L (3.5-5.1)
== END ==
LOC: M LABDRAWC 15:54
PROVIDERS: ATTEND Nurse Practitioner Adult Health
DX: Z94.4 Liver transplant status (principal); Z79.899 Other long term (current) drug therapy

== ENCOUNTER → 2020-03-03 | Outpatient (REF) | payer MEDICARE, OTHER, MEDICAID ==
[2020-03-03 16:55] LABS: CHOLESTEROL RISK RATIO 2.113 (<5)
[2020-03-03 16:56] LABS: CREATININE, URINE 46.9 MG/DL; MAU/CREAT RATIO 57.5 MCG/MG (0.0-30.0)
[2020-03-03 17:15] LABS: TOTAL 25(OH) VITAMIN D 23.4 NG/ML (30.0-100.0)
[2020-03-03 18:31] LABS: HEMOGLOBIN A1c 6.8 %
== END ==
LOC: M SFHCCLAY 11:45
PROVIDERS: ATTEND Nurse Practitioner Family
DX: E11.69 Type 2 diabetes mellitus with other specified complication (principal); E78.5 Hyperlipidemia, unspecified; E55.9 Vitamin D deficiency, unspecified
CPT/HCPCS: 80061; 82043; 82306; 83036; G0463

== ENCOUNTER → 2020-03-31 | Outpatient (REF) | payer MEDICARE, OTHER, MEDICAID ==
[2020-04-01 15:35] LABS: APPEARANCE, URINE CLOUDY (CLEAR); BACTERIA, URINE AUTO 1+ (NEGATIVE); BILIRUBIN, URINE AUTO NEGATIVE (NEGATIVE); BLOOD, URINE BLOOD 1+ (NEGATIVE); COLOR, URINE YELLOW (YELLOW); GLUCOSE, URINE (UA) AUTO NEGATIVE (NEGATIVE); KETONE, URINE AUTO NEGATIVE (NEGATIVE); LEUKOCYTE ESTERASE, URINE AUTO 3+ (NEGATIVE); NITRITE, URINE AUTO NEGATIVE (NEGATIVE); PROTEIN, URINE AUTO 1+ mg/dL (NEGATIVE); RBC, URINE AUTO 4 /HPF (0-3); SPECIFIC GRAVITY URINE AUTO 1.005 (1.002-1.035); SQUAMOUS EPITHELIAL CELL UR AU 1 /HPF (0-6); UROBILINOGEN, URINE AUTO 0.2 mg/dL (0.0-2.0); WBC, URINE AUTO TNTC /HPF (0-3)
== END ==
LOC: M SFHCCLAY 14:00
PROVIDERS: ATTEND Nurse Practitioner Family
DX: N39.0 Urinary tract infection, site not specified (principal)

== ENCOUNTER → 2020-10-21 | Outpatient (REF) | payer MEDICARE, OTHER, MEDICAID ==
[2020-10-21 16:24] LABS: ALBUMIN 3.3 GM/DL (3.2-5.2); BILIRUBIN,TOTAL 0.5 MG/DL (0.2-1.0); CALCIUM LEVEL 8.8 MG/DL (8.8-10.2); CHOLESTEROL RISK RATIO 2.531 (<5); CREATININE FOR GFR 1.6 MG/DL (0.55-1.30); GLOMERULAR FILTRATION RATE 33.4 (>39); MAGNESIUM LEVEL 1.5 MG/DL (1.8-2.4); POTASSIUM SERUM 4.6 MEQ/L (3.5-5.1); TOTAL PROTEIN 7.4 GM/DL (6.4-8.2)
[2020-10-21 16:32] LABS: HEMATOCRIT 29.8 % (36.0-47.0); HEMOGLOBIN 9.3 g/dl (12.0-15.5); MEAN CORPUSCULAR HEMOGLOBIN 31.5 pg (27.0-33.0); MEAN CORPUSCULAR HGB CONC 31.2 g/dl (32.0-36.5); PLATELET COUNT, AUTOMATED 102 10^3/uL (150-450); RED BLOOD COUNT 2.95 10^6/uL (4.00-5.40); WHITE BLOOD COUNT 8.8 10^3/uL (4.0-10.0)
[2020-10-21 18:32] LABS: EOSINOPHILS 2 % (0-3); LYMPHOCYTES 16 % (16-44); METAMYELOCYTES 1 % (0-0); MONOCYTES 5 % (0-5); MYELOCYTES 1 % (0-0); NEUTROPHILS 73 % (28-66); PLATELET ESTIMATE DECREASED (NORMAL)
[2020-10-21 18:49] LABS: TOTAL 25(OH) VITAMIN D 23.7 NG/ML (30.0-100.0)
[2020-10-21 19:07] LABS: HEMOGLOBIN A1c 6.8 %
== END ==
LOC: M SFHCCLAY 09:52
PROVIDERS: ATTEND Nurse Practitioner Family
DX: I10 Essential (primary) hypertension (principal); E11.9 Type 2 diabetes mellitus without complications; E78.5 Hyperlipidemia, unspecified; E55.9 Vitamin D deficiency, unspecified

== ENCOUNTER → 2020-10-22 | Outpatient (REF) | payer MEDICARE, MEDICAID, OTHER ==
[2020-10-22 16:37] LABS: CREATININE, URINE 14.6 MG/DL; MALB URINE SIEMENS 32.1 MG/L; MAU/CREAT RATIO 219.8 MCG/MG (0.0-30.0)
== END ==
LOC: M SFHCCLAY 15:35
PROVIDERS: ATTEND Nurse Practitioner Family
DX: E11.9 Type 2 diabetes mellitus without complications (principal)
CPT/HCPCS: 82043; G0463

== ENCOUNTER → 2020-11-16 | Outpatient (REF) | payer MEDICARE, MEDICAID, OTHER ==
[2020-11-16 17:34] LABS: HEMOGLOBIN 8.9 g/dl (12.0-15.5); MEAN CORPUSCULAR HEMOGLOBIN 31.7 pg (27.0-33.0); MEAN CORPUSCULAR HGB CONC 30.7 g/dl (32.0-36.5); MEAN CORPUSCULAR VOLUME 103.2 fl (80.0-96.0); PLATELET COUNT, AUTOMATED 126 10^3/uL (150-450); RED BLOOD COUNT 2.81 10^6/uL (4.00-5.40); WHITE BLOOD COUNT 8.3 10^3/uL (4.0-10.0)
[2020-11-16 17:39] LABS: ALBUMIN 3.2 GM/DL (3.2-5.2); BILIRUBIN,TOTAL 0.3 MG/DL (0.2-1.0); CALCIUM LEVEL 8.8 MG/DL (8.8-10.2); CREATININE FOR GFR 1.48 MG/DL (0.55-1.30); GLOMERULAR FILTRATION RATE 36.5 (>39); POTASSIUM SERUM 5.2 MEQ/L (3.5-5.1); TOTAL PROTEIN 7.3 GM/DL (6.4-8.2)
== END ==
LOC: M LABDRAWC 16:21
PROVIDERS: ATTEND Nurse Practitioner Family
DX: Z79.899 Other long term (current) drug therapy (principal); Z94.1 Heart transplant status

== ENCOUNTER → 2020-11-23 | Outpatient (REF) | payer MEDICARE, OTHER, MEDICAID ==
[2020-11-23 16:55] LABS: MAGNESIUM LEVEL 1.8 MG/DL (1.8-2.4); PERCENT SATURATION 8.9 % (13.2-45.0)
[2020-11-23 17:00] LABS: FOLATE 10.2 NG/ML (>5.4)
== END ==
LOC: M SFHCCLAY 10:03
PROVIDERS: ATTEND Nurse Practitioner Family
DX: D64.9 Anemia, unspecified (principal); I10 Essential (primary) hypertension

== ENCOUNTER → 2020-11-24 | Outpatient (CLI) | payer MEDICARE, OTHER, MEDICAID ==
--- NOTE | 2020-11-24 13:25 | REP ---
INDICATION: WORSENING COUGH FOR 2-3 WEEKS; [facility] COMPARISON: 11/06/2017. TECHNIQUE: PA/Lateral FINDINGS: There is mild chronic elevation of the right hemidiaphragm. There is mild bibasilar fibrotic change which appears stable. No superimposed acute infiltrate is seen. The heart is normal in size. The mediastinal silhouette is unchanged. Multiple sternal wires mediastinal clips are present. There is calcification of the thoracic aorta. There are mild degenerative changes of the spine without compression deformity. IMPRESSION: No acute pulmonary disease. Stable chronic changes. <Electronically signed by Johnathan Bond > 11/24/20 [id number]
== END ==
LOC: M CLY 12:17
PROVIDERS: ATTEND Physician Assistant
DX: R05 Cough (principal)
CPT/HCPCS: 71046; G0463

== ENCOUNTER → 2020-12-16 | Outpatient (REF) | payer MEDICARE, OTHER, MEDICAID ==
[2020-12-16 16:03] LABS: HEMATOCRIT 29.8 % (36.0-47.0); HEMOGLOBIN 9.1 g/dl (12.0-15.5); MEAN CORPUSCULAR HEMOGLOBIN 31.4 pg (27.0-33.0); MEAN CORPUSCULAR HGB CONC 30.5 g/dl (32.0-36.5); MEAN CORPUSCULAR VOLUME 102.8 fl (80.0-96.0); PLATELET COUNT, AUTOMATED 127 10^3/uL (150-450); WHITE BLOOD COUNT 6.3 10^3/uL (4.0-10.0)
[2020-12-16 16:33] LABS: PERCENT SATURATION 11.4 % (13.2-45.0)
== END ==
LOC: M SFHCCLAY 10:33
PROVIDERS: ATTEND Nurse Practitioner Family
DX: D64.9 Anemia, unspecified (principal)

== ENCOUNTER → 2020-12-28 | Outpatient (REF) | payer MEDICARE, OTHER, MEDICAID ==
[2020-12-28 11:54] LABS: MEAN CORPUSCULAR HEMOGLOBIN 31.6 pg (27.0-33.0); MEAN CORPUSCULAR VOLUME 101.8 fl (80.0-96.0); PLATELET COUNT, AUTOMATED 101 10^3/uL (150-450); RED BLOOD COUNT 2.85 10^6/uL (4.00-5.40); WHITE BLOOD COUNT 6.9 10^3/uL (4.0-10.0)
[2020-12-28 12:31] LABS: PERCENT SATURATION 9.2 % (13.2-45.0)
== END ==
LOC: M SFHCCLAY 09:28
PROVIDERS: ATTEND Nurse Practitioner Family
DX: D50.9 Iron deficiency anemia, unspecified (principal)

== ENCOUNTER → 2021-01-13 | Outpatient (REF) | payer MEDICARE, OTHER, MEDICAID ==
[2021-01-13 16:00] LABS: HEMOGLOBIN 9.3 g/dl (12.0-15.5); MEAN CORPUSCULAR HEMOGLOBIN 31.4 pg (27.0-33.0); MEAN CORPUSCULAR VOLUME 101.4 fl (80.0-96.0); PLATELET COUNT, AUTOMATED 104 10^3/uL (150-450); RED BLOOD COUNT 2.96 10^6/uL (4.00-5.40); WHITE BLOOD COUNT 7.1 10^3/uL (4.0-10.0)
[2021-01-13 16:30] LABS: PERCENT SATURATION 8.4 % (13.2-45.0)
== END ==
LOC: M SFHCCLAY 12:12
PROVIDERS: ATTEND Nurse Practitioner Family
DX: D64.9 Anemia, unspecified (principal)

== ENCOUNTER → 2021-04-01 | Outpatient (REF) | payer MEDICARE, OTHER, MEDICAID ==
[2021-04-01 16:09] LABS: HEMOGLOBIN A1c 6.8 %
[2021-04-01 16:32] LABS: ALBUMIN 3.3 GM/DL (3.2-5.2); BILIRUBIN,TOTAL 0.5 MG/DL (0.2-1.0); CHOLESTEROL RISK RATIO 2.39 (<5); CREATININE FOR GFR 1.13 MG/DL (0.55-1.30); FREE T4 1.08 NG/DL (0.76-1.46); GLOMERULAR FILTRATION RATE 49.8 (>39); POTASSIUM SERUM 4.3 MEQ/L (3.5-5.1); THYROID STIMULATING HORMONE 1.09 uIU/ML (0.358-3.740); TOTAL PROTEIN 7.7 GM/DL (6.4-8.2)
[2021-04-01 16:33] LABS: TOTAL 25(OH) VITAMIN D 20.8 NG/ML (30.0-100.0)
[2021-04-01 17:00] LABS: CREATININE, URINE 40.7 MG/DL; MAU/CREAT RATIO 985.2 MCG/MG (0.0-30.0)
== END ==
LOC: M SFHCCLAY 10:38
PROVIDERS: ATTEND Nurse Practitioner Family
DX: I10 Essential (primary) hypertension (principal); E55.9 Vitamin D deficiency, unspecified; E78.5 Hyperlipidemia, unspecified; K21.9 Gastro-esophageal reflux disease without esophagitis; E11.9 Type 2 diabetes mellitus without complications; Z79.82 Long term (current) use of aspirin

== ENCOUNTER → 2021-07-04 | Outpatient (REF) | payer MEDICARE, OTHER, MEDICAID ==
[2021-07-04 16:03] LABS: HEMATOCRIT 28.3 % (36.0-47.0); HEMOGLOBIN 8.8 g/dl (12.0-15.5); MEAN CORPUSCULAR HEMOGLOBIN 30.2 pg (27.0-33.0); MEAN CORPUSCULAR HGB CONC 31.1 g/dl (32.0-36.5); MEAN CORPUSCULAR VOLUME 97.3 fl (80.0-96.0); PLATELET COUNT, AUTOMATED 117 10^3/uL (150-450); RED BLOOD COUNT 2.91 10^6/uL (4.00-5.40); WHITE BLOOD COUNT 6.7 10^3/uL (4.0-10.0)
[2021-07-04 16:33] LABS: ALBUMIN 2.8 GM/DL (3.2-5.2); BILIRUBIN,TOTAL 0.5 MG/DL (0.2-1.0); CALCIUM LEVEL 8.7 MG/DL (8.8-10.2); CREATININE FOR GFR 1.42 MG/DL (0.55-1.30); GLOMERULAR FILTRATION RATE 38.3 (>39); POTASSIUM SERUM 3.9 MEQ/L (3.5-5.1); TOTAL PROTEIN 7.4 GM/DL (6.4-8.2)
== END ==
LOC: M LABDRAWC 15:42
DX: Z94.4 Liver transplant status (principal); Z79.899 Other long term (current) drug therapy

== ENCOUNTER → 2021-07-19 | Outpatient (REF) | payer MEDICARE, MEDICAID, OTHER ==
[2021-07-19 16:07] LABS: HEMATOCRIT 29.3 % (36.0-47.0); HEMOGLOBIN 8.9 g/dl (12.0-15.5); MEAN CORPUSCULAR HEMOGLOBIN 29.6 pg (27.0-33.0); MEAN CORPUSCULAR HGB CONC 30.4 g/dl (32.0-36.5); MEAN CORPUSCULAR VOLUME 97.3 fl (80.0-96.0); PLATELET COUNT, AUTOMATED 110 10^3/uL (150-450); RED BLOOD COUNT 3.01 10^6/uL (4.00-5.40); WHITE BLOOD COUNT 6.8 10^3/uL (4.0-10.0)
[2021-07-19 16:45] LABS: ALBUMIN 2.9 GM/DL (3.2-5.2); BILIRUBIN,TOTAL 0.4 MG/DL (0.2-1.0); CALCIUM LEVEL 8.7 MG/DL (8.8-10.2); CREATININE FOR GFR 1.19 MG/DL (0.55-1.30); GLOMERULAR FILTRATION RATE 46.9 (>39); POTASSIUM SERUM 4.1 MEQ/L (3.5-5.1); TOTAL PROTEIN 7.4 GM/DL (6.4-8.2)
== END ==
LOC: M LABDRAWC 15:44
PROVIDERS: ATTEND Psychiatry & Neurology Child & Adolescent Psychiatry
DX: Z94.4 Liver transplant status (principal); Z79.899 Other long term (current) drug therapy

== ENCOUNTER → 2021-08-30 | Outpatient (REF) | payer MEDICARE, MEDICAID, OTHER ==
[2021-08-30 16:04] LABS: HEMOGLOBIN 9.2 g/dl (12.0-15.5); MEAN CORPUSCULAR HEMOGLOBIN 29.4 pg (27.0-33.0); MEAN CORPUSCULAR HGB CONC 29.7 g/dl (32.0-36.5); PLATELET COUNT, AUTOMATED 132 10^3/uL (150-450); RED BLOOD COUNT 3.13 10^6/uL (4.00-5.40); WHITE BLOOD COUNT 8.8 10^3/uL (4.0-10.0)
[2021-08-30 16:32] LABS: ALBUMIN 3.1 GM/DL (3.2-5.2); BILIRUBIN,TOTAL 0.3 MG/DL (0.2-1.0); CREATININE FOR GFR 1.32 MG/DL (0.55-1.30); GLOMERULAR FILTRATION RATE 41.5 (>39); POTASSIUM SERUM 4.1 MEQ/L (3.5-5.1); TOTAL PROTEIN 7.5 GM/DL (6.4-8.2)
== END ==
LOC: M LABDRAWC 12:47
PROVIDERS: ATTEND Psychiatry & Neurology Child & Adolescent Psychiatry
DX: Z94.4 Liver transplant status (principal); Z79.899 Other long term (current) drug therapy

== ENCOUNTER → 2021-09-13 | Outpatient (REF) | payer MEDICARE, OTHER, MEDICAID ==
[~2021-09-13] MED LIST changes: +ATOR40TA75 PO; +CARV25TA PO; +ERGO500029 PO; +FURO40TA2 PO; +NITR0.4S14 SL; +SPIR-10 PO; +TACR0.5C3 PO; +URSO1TAB8 PO
[2021-09-13 16:18] LABS: HEMOGLOBIN A1c 6.7 %
== END ==
LOC: M SFHCCLAY 11:51
PROVIDERS: ATTEND Nurse Practitioner Family
DX: E11.9 Type 2 diabetes mellitus without complications (principal)

== ENCOUNTER → 2021-09-21 | Outpatient (CLI) | payer MEDICARE, MEDICAID, OTHER | LOC: M LABSMTC 10:20 | PROVIDERS: ATTEND Anesthesiology | DX: Z01.812 Encounter for preprocedural laboratory examination (principal); Z20.822 Contact with and (suspected) exposure to COVID-19 ==

== ENCOUNTER → 2021-10-31 | Outpatient (CLI) | payer MEDICARE, OTHER | LOC: M LABSMTC 10:54 | PROVIDERS: ATTEND Anesthesiology | DX: Z01.818 Encounter for other preprocedural examination (principal); Z11.52 Encounter for screening for COVID-19 ==

== ENCOUNTER 2021-11-04 10:32 | Day surgery (SDC) | payer MEDICARE, OTHER ==
[~2021-11-04] VITALS: Ht 160 cm; Wt 59.3 kg
[~2021-11-04 10:32] MED LIST changes: +BSS IRR 500ML/OMIDRIA 4ML IRR BAG (OR ONLY) As Ordered ONE; +CEFUROXIME 1MG/0.1ML INTRACAMERAL INJ As Ordered ONE; +LIDOCAINE 1% SDV 5ML VIAL As Ordered ONE; +MIDAZOLAM INJ 2MG/2ML VIAL (J2250 PER 1MG) As Ordered ONE; +OFLOXACIN 0.3 % (OCUFLOX) OPTH SOL 5ML OS SCH; +PHENYLEPHRINE 2.5% OPHTH SOL 2ML OS SCH; +PROPARACAINE 0.5% OPHTH SOL 15ML OS ONE; +TROPICAMIDE 1% OPHTH SOLN 2ML OS SCH
[2021-11-04 13:13] VITALS: BP 161/77
== END 2021-11-04 13:42 | disposition home or self-care (01) ==
LOC: M SDC 10:32
PROVIDERS: ATTEND Ophthalmology
DX: H25.12 Age-related nuclear cataract, left eye (principal); I10 Essential (primary) hypertension; I48.91 Unspecified atrial fibrillation; I25.2 Old myocardial infarction; Z95.5 Presence of coronary angioplasty implant and graft; E78.00 Pure hypercholesterolemia, unspecified; Z94.4 Liver transplant status; M19.90 Unspecified osteoarthritis, unspecified site; K21.9 Gastro-esophageal reflux disease without esophagitis; Z87.19 Personal history of other diseases of the digestive system; F32.9 Major depressive disorder, single episode, unspecified; Z79.899 Other long term (current) drug therapy
CPT/HCPCS: 66984; J0697; J1097; J2250; V2632

== ENCOUNTER → 2021-12-30 | Outpatient (CLI) | payer MEDICARE, OTHER ==
[~2021-12-30] MED LIST changes: -BSS IRR 500ML/OMIDRIA 4ML IRR BAG (OR ONLY) As Ordered ONE; -CEFUROXIME 1MG/0.1ML INTRACAMERAL INJ As Ordered ONE; +CEPH250T PO; -LIDOCAINE 1% SDV 5ML VIAL As Ordered ONE; -MIDAZOLAM INJ 2MG/2ML VIAL (J2250 PER 1MG) As Ordered ONE; -OFLOXACIN 0.3 % (OCUFLOX) OPTH SOL 5ML OS SCH; -PHENYLEPHRINE 2.5% OPHTH SOL 2ML OS SCH; -PROPARACAINE 0.5% OPHTH SOL 15ML OS ONE; -TROPICAMIDE 1% OPHTH SOLN 2ML OS SCH
== END ==
LOC: M CLY 11:05
PROVIDERS: ATTEND Nurse Practitioner Family
DX: I51.7 Cardiomegaly (principal)

== ENCOUNTER → 2021-12-30 | Outpatient (REF) | payer MEDICARE, OTHER ==
[2021-12-30 16:05] LABS: BASO % 0.5 % (0.0-1.0); EOS % 0.2 % (0.0-3.0); HEMATOCRIT 29.8 % (36.0-47.0); HEMOGLOBIN 9.2 g/dl (12.0-15.5); LYMPH # 1.9 10^3/uL (1.5-5.0); LYMPH % 22.2 % (24.0-44.0); MEAN CORPUSCULAR HGB CONC 30.9 g/dl (32.0-36.5); MONO % 12.3 % (2.0-8.0); NEUTROPHILS # 5.2 10^3/uL (1.5-8.5); NEUTROPHILS % 61.5 % (36.0-66.0); PLATELET COUNT, AUTOMATED 129 10^3/uL (150-450); RED BLOOD COUNT 3.17 10^6/uL (4.00-5.40); WHITE BLOOD COUNT 8.4 10^3/uL (4.0-10.0)
[2021-12-30 16:17] LABS: ALBUMIN 3.2 GM/DL (3.2-5.2); BILIRUBIN,TOTAL 0.5 MG/DL (0.2-1.0); CALCIUM LEVEL 9.4 MG/DL (8.8-10.2); CREATININE FOR GFR 1.28 MG/DL (0.55-1.30); POTASSIUM SERUM 4.1 MEQ/L (3.5-5.1); TOTAL PROTEIN 7.8 GM/DL (6.4-8.2)
== END ==
LOC: M SFHCCLAY 10:53
PROVIDERS: ATTEND Nurse Practitioner Family
DX: I10 Essential (primary) hypertension (principal); Z94.4 Liver transplant status; Z79.899 Other long term (current) drug therapy

== ENCOUNTER → 2021-12-30 | Outpatient (REF) | payer MEDICARE, OTHER ==
[2021-12-30 16:10] LABS: HEMATOCRIT 29.8 % (36.0-47.0); HEMOGLOBIN 9.2 g/dl (12.0-15.5); MEAN CORPUSCULAR HGB CONC 30.9 g/dl (32.0-36.5); PLATELET COUNT, AUTOMATED 120 10^3/uL (150-450); RED BLOOD COUNT 3.17 10^6/uL (4.00-5.40); WHITE BLOOD COUNT 8.5 10^3/uL (4.0-10.0)
[2021-12-30 16:18] LABS: ALBUMIN 3.2 GM/DL (3.2-5.2); BILIRUBIN,TOTAL 0.5 MG/DL (0.2-1.0); CALCIUM LEVEL 9.3 MG/DL (8.8-10.2); CREATININE FOR GFR 1.28 MG/DL (0.55-1.30); POTASSIUM SERUM 4.2 MEQ/L (3.5-5.1); TOTAL PROTEIN 7.7 GM/DL (6.4-8.2)
== END ==
LOC: M LABDRAWC 15:40
PROVIDERS: ATTEND Psychiatry & Neurology Child & Adolescent Psychiatry
DX: Z94.4 Liver transplant status (principal); Z79.899 Other long term (current) drug therapy

== ENCOUNTER → 2022-01-12 | Outpatient (REF) | payer MEDICARE, OTHER | LOC: M SFHCWAGY 10:24 | PROVIDERS: ATTEND Specialist | DX: Z12.4 Encounter for screening for malignant neoplasm of cervix (principal); N95.0 Postmenopausal bleeding; R87.610 Atypical squamous cells of undetermined significance on cytologic smear of cervix (ASC-US) | CPT/HCPCS: 87624; 88305; G0123 ==

== ENCOUNTER → 2022-02-15 | Outpatient (REF) | payer MEDICARE, OTHER ==
[~2022-02-15] MED LIST changes: +ACET1TAB55 PO; +CARV12.5 PO; +LEVO1TAB40 PO; +METR-265 PO; +NITR4TASL SL
[2022-02-15 18:22] LABS: HEMATOCRIT 26.6 % (36.0-47.0); HEMOGLOBIN 8.1 g/dl (12.0-15.5); MEAN CORPUSCULAR HEMOGLOBIN 28.1 pg (27.0-33.0); MEAN CORPUSCULAR HGB CONC 30.5 g/dl (32.0-36.5); MEAN CORPUSCULAR VOLUME 92.4 fl (80.0-96.0); PLATELET COUNT, AUTOMATED 138 10^3/uL (150-450); RED BLOOD COUNT 2.88 10^6/uL (4.00-5.40); WHITE BLOOD COUNT 8.3 10^3/uL (4.0-10.0)
[2022-02-15 18:32] LABS: ALT/SGPT 14 U/L (12-78); BILIRUBIN,TOTAL 0.8 MG/DL (0.2-1.0); BLOOD UREA NITROGEN 26 MG/DL (7-18); C REACTIVE PROTEIN QUANTITATIV 7.54 MG/DL (0.00-0.30); CALCIUM LEVEL 8.9 MG/DL (8.8-10.2); CARBON DIOXIDE LEVEL 25 MEQ/L (21-32); CHLORIDE LEVEL 107 MEQ/L (98-107); CREATININE FOR GFR 0.99 MG/DL (0.55-1.30); GLOMERULAR FILTRATION RATE 57.9 (>39); GLUCOSE, FASTING 99 MG/DL (70-100); POTASSIUM SERUM 3.9 MEQ/L (3.5-5.1); RHEUMATOID FACTOR QUANT < 10.0 IU/ML (<15.0); SODIUM LEVEL 140 MEQ/L (136-145); TOTAL PROTEIN 7.4 GM/DL (6.4-8.2)
[2022-02-15 20:05] LABS: ERYTHROCYTE SEDIMENTATION RATE 108 mm/hr (0-30)
[2022-02-15 20:52] LABS: ANISOCYTOSIS 2+; ATYPICAL LYMPH 1 % (0-5); BASOPHILS 1 % (0-1); EOSINOPHILS 1 % (0-3); LYMPHOCYTES 22 % (16-44); METAMYELOCYTES 2 % (0-0); MONOCYTES 4 % (0-5); NEUTROPHILS 49 % (28-66); PLATELET ESTIMATE DECREASED (NORMAL)
[2022-02-15 20:53] LABS: POIKILOCYTOSIS 1+
[2022-02-18 01:07] LABS: ANA (HEP2) Negative (.); CYCLIC CITRULLINATED PEPTIDE 67 units (0-19)
== END ==
LOC: M SFHCCLAY 14:08
PROVIDERS: ATTEND Physician Assistant
DX: M19.079 Primary osteoarthritis, unspecified ankle and foot (principal); Z79.899 Other long term (current) drug therapy

== ENCOUNTER 2022-02-20 14:55 | Emergency (ER) | payer MEDICARE, OTHER ==
[~2022-02-20 14:55] MED LIST changes: -ACET1TAB55 PO; -CARV12.5 PO; -LEVO1TAB40 PO; -METR-265 PO; -NITR4TASL SL
[2022-02-20] MEDS ORDERED: METOPROLOL 5 MG/5 ML VIAL IV STA (16:17)
[2022-02-20] MEDS ORDERED: METOPROLOL TART 25 MG TABLET PO ONE (16:20)
[2022-02-20 16:53] LABS: HEMATOCRIT 28.1 % (36.0-47.0); HEMOGLOBIN 8.5 g/dl (12.0-15.5); MEAN CORPUSCULAR HEMOGLOBIN 27.9 pg (27.0-33.0); MEAN CORPUSCULAR HGB CONC 30.2 g/dl (32.0-36.5); MEAN CORPUSCULAR VOLUME 92.1 fl (80.0-96.0); PLATELET COUNT, AUTOMATED 141 10^3/uL (150-450); RED BLOOD COUNT 3.05 10^6/uL (4.00-5.40); WHITE BLOOD COUNT 10.7 10^3/uL (4.0-10.0)
[2022-02-20] MEDS: METOPROLOL 5 MG/5 ML VIAL IV SCH ×3 (17:30→18:52)
[2022-02-20 17:45] LABS: EOSINOPHILS 1 % (0-3); LYMPHOCYTES 33 % (16-44); MONOCYTES 3 % (0-5); NEUTROPHILS 63 % (28-66)
[2022-02-20 17:46] LABS: PLATELET ESTIMATE DECREASED (NORMAL)
[2022-02-20 17:47] LABS: CALCIUM LEVEL 8.7 MG/DL (8.8-10.2); CREATININE FOR GFR 1.21 MG/DL (0.55-1.30); GLOMERULAR FILTRATION RATE 45.9 (>39); POTASSIUM SERUM 3.6 MEQ/L (3.5-5.1)
[2022-02-20 18:09] LABS: C REACTIVE PROTEIN QUANTITATIV 1.82 MG/DL (0.00-0.30)
[2022-02-20 18:52] VITALS: BP 158/88
[2022-02-20 20:00] LABS: RSV AMPLIFICATION NEGATIVE (NEGATIVE)
[2022-02-20] MEDS ORDERED: CARVedilol 12.5 MG TAB PO ONE (21:00)
[2022-02-20] MEDS ORDERED: NITR0.4S14 SL (21:20)
[2022-02-20 22:00] VITALS: BP 163/79
== END 2022-02-20 22:08 | disposition home or self-care (01) ==
LOC: M ED 14:55
DX: I48.91 Unspecified atrial fibrillation (principal); I10 Essential (primary) hypertension; I50.9 Heart failure, unspecified; E78.5 Hyperlipidemia, unspecified; F33.9 Major depressive disorder, recurrent, unspecified; I25.2 Old myocardial infarction; Z79.899 Other long term (current) drug therapy
CPT/HCPCS: 71045; 80048; 85025; 86140; 86850; 86900; 86901; 87631; 93005; 93041; 94760; 96374; 96376; 99285; G0463

== ENCOUNTER → 2022-02-22 | Outpatient (REF) | payer MEDICARE, OTHER ==
[2022-02-22 16:25] LABS: BASO % 0.4 % (0.0-1.0); EOS # 0.1 10^3/uL (0.0-0.5); EOS % 1.1 % (0.0-3.0); HEMATOCRIT 27.7 % (36.0-47.0); HEMOGLOBIN 8.1 g/dl (12.0-15.5); LYMPH % 18.2 % (24.0-44.0); MEAN CORPUSCULAR HEMOGLOBIN 27.4 pg (27.0-33.0); MEAN CORPUSCULAR HGB CONC 29.2 g/dl (32.0-36.5); MEAN CORPUSCULAR VOLUME 93.6 fl (80.0-96.0); MONO # 1.4 10^3/uL (0.0-0.8); MONO % 12.4 % (2.0-8.0); NEUTROPHILS # 6.9 10^3/uL (1.5-8.5); NEUTROPHILS % 62.9 % (36.0-66.0); PLATELET COUNT, AUTOMATED 118 10^3/uL (150-450); RED BLOOD COUNT 2.96 10^6/uL (4.00-5.40)
[2022-02-22 18:16] LABS: ALBUMIN 2.8 GM/DL (3.2-5.2); BILIRUBIN,TOTAL 0.5 MG/DL (0.2-1.0); C REACTIVE PROTEIN QUANTITATIV 1.62 MG/DL (0.00-0.30); CALCIUM LEVEL 8.5 MG/DL (8.8-10.2); CREATININE FOR GFR 1.23 MG/DL (0.55-1.30); GLOMERULAR FILTRATION RATE 45.1 (>39); POTASSIUM SERUM 3.9 MEQ/L (3.5-5.1); TOTAL PROTEIN 6.8 GM/DL (6.4-8.2); URIC ACID 10.3 MG/DL (2.6-6.0)
== END ==
LOC: M SFHCCLAY 10:07
PROVIDERS: ATTEND Nurse Practitioner Family
DX: M79.89 Other specified soft tissue disorders (principal)

== ENCOUNTER → 2022-03-06 | Outpatient (REF) | payer MEDICARE, OTHER ==
[~2022-03-06] MED LIST changes: +ACET1TAB55 PO; +CARV12.5 PO; +LEVO1TAB40 PO; +METR-265 PO; +NITR4TASL SL
[2022-03-06 15:52] LABS: HEMATOCRIT 26.9 % (36.0-47.0); HEMOGLOBIN 8.1 g/dl (12.0-15.5); MEAN CORPUSCULAR HEMOGLOBIN 26.7 pg (27.0-33.0); MEAN CORPUSCULAR HGB CONC 30.1 g/dl (32.0-36.5); MEAN CORPUSCULAR VOLUME 88.8 fl (80.0-96.0); PLATELET COUNT, AUTOMATED 101 10^3/uL (150-450); RED BLOOD COUNT 3.03 10^6/uL (4.00-5.40); WHITE BLOOD COUNT 5.2 10^3/uL (4.0-10.0)
[2022-03-06 17:34] LABS: ATYPICAL LYMPH 1 % (0-5); METAMYELOCYTES 1 % (0-0)
[2022-03-06 17:39] LABS: LYMPHOCYTES 24 % (16-44); MONOCYTES 14 % (0-5)
[2022-03-06 17:42] LABS: OVALOCYTES 1+; POIKILOCYTOSIS 1+
[2022-03-06 17:43] LABS: HYPOCHROMASIA 1+; PLATELET ESTIMATE DECREASED (NORMAL); ROULEAUX 2+
[2022-03-06 17:44] LABS: EOSINOPHILS 1 % (0-3); NEUTROPHILS 57 % (28-66)
[2022-03-06 19:20] LABS: CALCIUM LEVEL 8.5 MG/DL (8.8-10.2); CREATININE FOR GFR 1.62 MG/DL (0.55-1.30); GLOMERULAR FILTRATION RATE 32.8 (>39); POTASSIUM SERUM 4.4 MEQ/L (3.5-5.1); URIC ACID 9.8 MG/DL (2.6-6.0)
== END ==
LOC: M SFHCCLAY 10:52
PROVIDERS: ATTEND Nurse Practitioner Family
DX: M10.9 Gout, unspecified (principal); N39.0 Urinary tract infection, site not specified

== ENCOUNTER 2022-03-09 11:39 | Inpatient (IN) | payer MEDICARE, OTHER ==
[~2022-03-09] VITALS: Ht 162.6 cm; Wt 58.0 kg
[~2022-03-09 11:39] MED LIST changes: -ACET1TAB55 PO; -CARV12.5 PO; -LEVO1TAB40 PO; -METR-265 PO; -NITR4TASL SL
[2022-03-09 13:27] LABS: BASO % 0.2 % (0.0-1.0); EOS # 0.1 10^3/uL (0.0-0.5); EOS % 1.3 % (0.0-3.0); HEMATOCRIT 25.6 % (36.0-47.0); HEMOGLOBIN 7.9 g/dl (12.0-15.5); LYMPH # 1.6 10^3/uL (1.5-5.0); LYMPH % 15.2 % (24.0-44.0); MEAN CORPUSCULAR HEMOGLOBIN 27.2 pg (27.0-33.0); MEAN CORPUSCULAR HGB CONC 30.9 g/dl (32.0-36.5); MEAN CORPUSCULAR VOLUME 88.3 fl (80.0-96.0); MONO # 0.8 10^3/uL (0.0-0.8); MONO % 7.4 % (2.0-8.0); NEUTROPHILS # 7.2 10^3/uL (1.5-8.5); PLATELET COUNT, AUTOMATED 113 10^3/uL (150-450); WHITE BLOOD COUNT 10.2 10^3/uL (4.0-10.0)
[2022-03-09] MEDS ORDERED: ONDANSETRON 4MG 2ML VIAL IV ONE ×2 (13:40→14:25)
[2022-03-09 14:03] LABS: BILIRUBIN,DIRECT 0.5 MG/DL (0.0-0.2); BILIRUBIN,TOTAL 0.7 MG/DL (0.2-1.0); CALCIUM LEVEL 8.9 MG/DL (8.8-10.2); CREATININE FOR GFR 1.6 MG/DL (0.55-1.30); GLOMERULAR FILTRATION RATE 33.3 (>39); POTASSIUM SERUM 4.7 MEQ/L (3.5-5.1); TOTAL PROTEIN 6.8 GM/DL (6.4-8.2)
[2022-03-09] MEDS ORDERED: ONDANSETRON 4MG ORAL DISINTEGRATING TAB PO ONE (14:15)
[2022-03-09] MEDS ORDERED: NS 500 ML IV ONE (14:25)
[2022-03-09] MEDS ORDERED: CIPROFLOXACIN 400 MG in IV 1 EA IV ONE (15:25)
[2022-03-09] MEDS ORDERED: ACET1TAB55 PO (17:07)
[2022-03-09] MEDS ORDERED: NITR4TASL SL (17:07)
[2022-03-09] MEDS ORDERED: CARV12.5 PO (17:07)
[2022-03-09] MEDS ORDERED: SPIR-10 PO (17:07)
[2022-03-09] MEDS ORDERED: TACR0.5C3 PO (17:07)
[2022-03-09] MEDS ORDERED: HOME MED LIST COMPLETE! XX SCH (17:10)
[2022-03-09] MEDS ORDERED: NITROGLYCERIN 0.4 MG SUBL TABLET SL PRN (17:40)
[2022-03-09] MEDS: metroNIDAZOLE (FLAGYL) 500MG TABLET PO SCH (22:07)
[2022-03-09] MEDS: CARVedilol 12.5 MG TAB PO SCH (22:08)
[2022-03-09] MEDS: ATORVASTATIN 20 MG TAB PO SCH (22:08)
[2022-03-09] MEDS: SPIRONOLACTONE 25 MG TAB PO SCH (22:46)
[2022-03-09] MEDS: ursodioL 300MG CAP PO SCH (22:46)
[2022-03-09] MEDS: TACROLIMUS 0.5 MG CAP PO SCH (22:47)
[2022-03-09] MEDS: MYCOPHENOLATE MOFETIL 250 MG CAP (J7517) PO SCH (22:47)
[2022-03-09] MEDS: VENLAFAXINE 37.5 MG TAB PO SCH (22:47)
[2022-03-09] MEDS: ACETAMINOPHEN TAB 650MG DOSE (2X325MG) PO PRN (22:47)
[2022-03-10] VITALS (10 sets, daily range): BP systolic 96–125; BP diastolic 53–72
[2022-03-10] MEDS ORDERED: LevoFLOXacin 750 MG TABLET PO SCH (06:00)
[2022-03-10 06:23] LABS: HEMATOCRIT 24.7 % (36.0-47.0); HEMOGLOBIN 7.5 g/dl (12.0-15.5); MEAN CORPUSCULAR HEMOGLOBIN 26.8 pg (27.0-33.0); MEAN CORPUSCULAR HGB CONC 30.4 g/dl (32.0-36.5); MEAN CORPUSCULAR VOLUME 88.2 fl (80.0-96.0); PLATELET COUNT, AUTOMATED 119 10^3/uL (150-450); WHITE BLOOD COUNT 7.3 10^3/uL (4.0-10.0)
[2022-03-10 06:49] LABS: ALBUMIN 2.7 GM/DL (3.2-5.2); BILIRUBIN,TOTAL 0.6 MG/DL (0.2-1.0); CALCIUM LEVEL 8.5 MG/DL (8.8-10.2); CREATININE FOR GFR 1.46 MG/DL (0.55-1.30); POTASSIUM SERUM 4.4 MEQ/L (3.5-5.1); TOTAL PROTEIN 6.3 GM/DL (6.4-8.2)
[2022-03-10] MEDS: ENOXAPARIN 30MG/0.3ML SYRINGE (J1650 PER 10MG) SC SCH (09:58)
[2022-03-10] MEDS: OMEPRAZOLE 20MG CAP PO SCH (09:58)
[2022-03-10] MEDS: MYCOPHENOLATE MOFETIL 250 MG CAP (J7517) PO SCH ×2 (09:59→20:32)
[2022-03-10] MEDS: TACROLIMUS 0.5 MG CAP PO SCH ×2 (09:59→20:33)
[2022-03-10] MEDS: SPIRONOLACTONE 25 MG TAB PO SCH ×2 (09:59→20:33)
[2022-03-10] MEDS: FUROSEMIDE 40 MG TAB PO SCH ×2 (10:00→17:15)
[2022-03-10] MEDS: ursodioL 300MG CAP PO SCH ×2 (10:00→20:33)
[2022-03-10] MEDS: CARVedilol 12.5 MG TAB PO SCH ×2 (10:01→20:35)
[2022-03-10] MEDS: metroNIDAZOLE (FLAGYL) 500MG TABLET PO SCH ×3 (10:06→20:52)
[2022-03-10] MEDS: ACETAMINOPHEN TAB 650MG DOSE (2X325MG) PO PRN ×2 (10:06→15:43)
[2022-03-10] MEDS: VENLAFAXINE 37.5 MG TAB PO SCH ×2 (10:34→20:33)
[2022-03-10] MEDS ORDERED: traMADol 50 MG TAB PO ONE (17:45)
[2022-03-10] MEDS: ATORVASTATIN 20 MG TAB PO SCH (20:33)
[2022-03-10] MEDS ORDERED: oxyCODONE 5MG TAB PO PRN (20:35)
[2022-03-11 05:45] VITALS: BP 126/61
[2022-03-11 06:32] LABS: MEAN CORPUSCULAR HEMOGLOBIN 26.5 pg (27.0-33.0); MEAN CORPUSCULAR VOLUME 88.2 fl (80.0-96.0); PLATELET COUNT, AUTOMATED 117 10^3/uL (150-450); WHITE BLOOD COUNT 6.2 10^3/uL (4.0-10.0)
[2022-03-11 07:01] LABS: ALBUMIN 2.7 GM/DL (3.2-5.2); BILIRUBIN,TOTAL 0.7 MG/DL (0.2-1.0); CALCIUM LEVEL 8.4 MG/DL (8.8-10.2); CREATININE FOR GFR 1.4 MG/DL (0.55-1.30); GLOMERULAR FILTRATION RATE 38.8 (>39); POTASSIUM SERUM 4.4 MEQ/L (3.5-5.1); TOTAL PROTEIN 6.5 GM/DL (6.4-8.2)
[2022-03-11] MEDS ORDERED: LEVO750T13 PO (07:53)
[2022-03-11] MEDS ORDERED: METR-265 PO (07:53)
[2022-03-11] MEDS: ENOXAPARIN 30MG/0.3ML SYRINGE (J1650 PER 10MG) SC SCH (09:31)
[2022-03-11] MEDS: FUROSEMIDE 40 MG TAB PO SCH (09:32)
[2022-03-11] MEDS: MYCOPHENOLATE MOFETIL 250 MG CAP (J7517) PO SCH (09:32)
[2022-03-11] MEDS: ursodioL 300MG CAP PO SCH (09:32)
[2022-03-11] MEDS: SPIRONOLACTONE 25 MG TAB PO SCH (09:32)
[2022-03-11] MEDS: VENLAFAXINE 37.5 MG TAB PO SCH (09:32)
[2022-03-11] MEDS: metroNIDAZOLE (FLAGYL) 500MG TABLET PO SCH (09:33)
[2022-03-11] MEDS: TACROLIMUS 0.5 MG CAP PO SCH (09:33)
[2022-03-11] MEDS: OMEPRAZOLE 20MG CAP PO SCH (09:33)
[2022-03-11 09:34] VITALS: BP 127/61
[2022-03-11] MEDS: CARVedilol 12.5 MG TAB PO SCH (09:34)
== END 2022-03-11 10:34 | disposition home or self-care (01) | DRG 690 ==
LOC: M ED 11:39 → M ED INP 16:14 → M MSPAV 03-10 07:41
PROVIDERS: ADMIT Family Medicine; ATTEND Family Medicine
PROC: 30233N1 Transfusion of Nonautologous Red Blood Cells into Peripheral Vein, Percutaneous Approach (ICD-10-PCS; principal; 2022-03-10)
DX: N39.0 Urinary tract infection, site not specified (principal); Z94.4 Liver transplant status; K57.32 Diverticulitis of large intestine without perforation or abscess without bleeding; I25.2 Old myocardial infarction; M10.9 Gout, unspecified; I48.91 Unspecified atrial fibrillation; H54.8 Legal blindness, as defined in USA; H91.93 Unspecified hearing loss, bilateral; Z95.5 Presence of coronary angioplasty implant and graft; I10 Essential (primary) hypertension; F32.A Depression, unspecified; Z79.899 Other long term (current) drug therapy

== ENCOUNTER → 2022-03-21 | Outpatient (REF) | payer MEDICARE, OTHER ==
[~2022-03-21] MED LIST changes: +ACET1TAB55 PO; +CARV12.5 PO; +LEVO1TAB40 PO; +METR-265 PO; +NITR4TASL SL
[2022-03-21 21:19] LABS: CALCIUM LEVEL 7.7 MG/DL (8.8-10.2); CREATININE FOR GFR 1.18 MG/DL (0.55-1.30); GLOMERULAR FILTRATION RATE 47.3 (>39); POTASSIUM SERUM 4.3 MEQ/L (3.5-5.1)
== END ==
LOC: M SFHCCLAY 14:53
PROVIDERS: ATTEND Nurse Practitioner Family
DX: M10.9 Gout, unspecified (principal)

== ENCOUNTER → 2022-03-28 | Outpatient (CLI) | payer MEDICARE, OTHER | LOC: M CLY 10:51 | PROVIDERS: ATTEND Nurse Practitioner Family | DX: I51.7 Cardiomegaly (principal); R05.1 Acute cough ==

== ENCOUNTER → 2022-03-28 | Outpatient (REF) | payer MEDICARE, OTHER ==
[2022-03-28 19:05] LABS: HEMATOCRIT 31.5 % (36.0-47.0); HEMOGLOBIN 9.4 g/dl (12.0-15.5); MEAN CORPUSCULAR HEMOGLOBIN 26.8 pg (27.0-33.0); MEAN CORPUSCULAR HGB CONC 29.8 g/dl (32.0-36.5); MEAN CORPUSCULAR VOLUME 89.7 fl (80.0-96.0); PLATELET COUNT, AUTOMATED 118 10^3/uL (150-450); RED BLOOD COUNT 3.51 10^6/uL (4.00-5.40); WHITE BLOOD COUNT 4.9 10^3/uL (4.0-10.0)
[2022-03-28 19:46] LABS: ALBUMIN 2.9 GM/DL (3.2-5.2); BILIRUBIN,TOTAL 0.5 MG/DL (0.2-1.0); CALCIUM LEVEL 8.4 MG/DL (8.8-10.2); CREATININE FOR GFR 1.19 MG/DL (0.55-1.30); GLOMERULAR FILTRATION RATE 46.8 (>39); POTASSIUM SERUM 3.9 MEQ/L (3.5-5.1); TOTAL PROTEIN 6.5 GM/DL (6.4-8.2)
[2022-03-28 19:52] LABS: EOSINOPHILS 1 % (0-3); LYMPHOCYTES 28 % (16-44); MONOCYTES 4 % (0-5); NEUTROPHILS 67 % (28-66); PLATELET ESTIMATE DECREASED (NORMAL)
[2022-03-28 19:53] LABS: ANISOCYTOSIS 2+; CRENATED RBC 1+; HYPOCHROMASIA 1+
== END ==
LOC: M SFHCCLAY 10:29
PROVIDERS: ATTEND Nurse Practitioner Family
DX: N17.9 Acute kidney failure, unspecified (principal); D64.9 Anemia, unspecified

== ENCOUNTER → 2022-05-26 | Outpatient (REF) | payer MEDICARE, OTHER ==
[2022-05-26 17:52] LABS: HEMATOCRIT 30.3 % (36.0-47.0); HEMOGLOBIN 9.2 g/dl (12.0-15.5); MEAN CORPUSCULAR HEMOGLOBIN 28.6 pg (27.0-33.0); MEAN CORPUSCULAR HGB CONC 30.4 g/dl (32.0-36.5); MEAN CORPUSCULAR VOLUME 94.1 fl (80.0-96.0); PLATELET COUNT, AUTOMATED 106 10^3/uL (150-450); RED BLOOD COUNT 3.22 10^6/uL (4.00-5.40); WHITE BLOOD COUNT 6.3 10^3/uL (4.0-10.0)
[2022-05-26 17:53] LABS: ALBUMIN 3.2 GM/DL (3.2-5.2); BILIRUBIN,TOTAL 0.7 MG/DL (0.2-1.0); CALCIUM LEVEL 9.1 MG/DL (8.8-10.2); CREATININE FOR GFR 1.51 MG/DL (0.55-1.30); GLOMERULAR FILTRATION RATE 35.6 (>39); POTASSIUM SERUM 4.7 MEQ/L (3.5-5.1); TOTAL PROTEIN 7.8 GM/DL (6.4-8.2)
== END ==
LOC: M LABDRAWC 17:14
PROVIDERS: ATTEND Psychiatry & Neurology Child & Adolescent Psychiatry
DX: Z79.899 Other long term (current) drug therapy (principal)

== ENCOUNTER → 2022-06-06 | Outpatient (REF) | payer MEDICARE, OTHER | LOC: M SFHCCLAY 11:07 | PROVIDERS: ATTEND Nurse Practitioner Family | DX: R30.0 Dysuria (principal) ==

== ENCOUNTER → 2022-07-20 | Outpatient (REF) | payer MEDICARE, OTHER ==
[~2022-07-20] MED LIST changes: +CLOP75TA99 PO; -PLAV1TAB2 PO
[2022-07-20 19:26] LABS: ALBUMIN 2.9 G/DL (3.2-5.2); BILIRUBIN,TOTAL 0.8 MG/DL (0.3-1.2); CALCIUM LEVEL 8.1 MG/DL (8.3-10.6); CREATININE FOR GFR 1.04 MG/DL (0.55-1.30); GLOMERULAR FILTRATION RATE 54.7 (>39); POTASSIUM SERUM 3.6 MMOL/L (3.5-5.1); TOTAL PROTEIN 6.9 G/DL (5.7-8.2)
[2022-07-20 19:36] LABS: HEMATOCRIT 29.4 % (36.0-47.0); HEMOGLOBIN 8.9 g/dl (12.0-15.5); MEAN CORPUSCULAR HEMOGLOBIN 29.9 pg (27.0-33.0); MEAN CORPUSCULAR HGB CONC 30.3 g/dl (32.0-36.5); MEAN CORPUSCULAR VOLUME 98.7 fl (80.0-96.0); RED BLOOD COUNT 2.98 10^6/uL (4.00-5.40); WHITE BLOOD COUNT 5.1 10^3/uL (4.0-10.0)
[2022-07-20 20:55] LABS: PLATELET COUNT, AUTOMATED 82 10^3/uL (150-450)
== END ==
LOC: M LABDRAWC 17:08
PROVIDERS: ATTEND Psychiatry & Neurology Child & Adolescent Psychiatry
DX: Z79.899 Other long term (current) drug therapy (principal); Z94.4 Liver transplant status

== ENCOUNTER → 2022-08-21 | Outpatient (CLI) | payer MEDICARE, OTHER ==
[~2022-08-21] MED LIST changes: +PROHANCE 279.3MG/ML 5ML VIAL ONE
== END ==
LOC: M PLAIMG 09:13
PROVIDERS: ATTEND Psychiatry & Neurology Child & Adolescent Psychiatry
DX: Z94.4 Liver transplant status (principal); K74.3 Primary biliary cirrhosis
CPT/HCPCS: 74183; A9576

== ENCOUNTER → 2022-08-30 | Outpatient (REF) | payer MEDICARE, OTHER ==
[~2022-08-30] MED LIST changes: -PROHANCE 279.3MG/ML 5ML VIAL ONE
[2022-08-30 18:05] LABS: BASO % 0.6 % (0.0-1.0); EOS # 0.1 10^3/uL (0.0-0.5); EOS % 1.7 % (0.0-3.0); HEMATOCRIT 29.6 % (36.0-47.0); HEMOGLOBIN 8.8 g/dl (12.0-15.5); LYMPH # 2.2 10^3/uL (1.5-5.0); LYMPH % 39.8 % (24.0-44.0); MEAN CORPUSCULAR HEMOGLOBIN 30.1 pg (27.0-33.0); MEAN CORPUSCULAR HGB CONC 29.7 g/dl (32.0-36.5); MEAN CORPUSCULAR VOLUME 101.4 fl (80.0-96.0); MONO # 0.6 10^3/uL (0.0-0.8); MONO % 11.6 % (2.0-8.0); NEUTROPHILS # 2.3 10^3/uL (1.5-8.5); NEUTROPHILS % 41.7 % (36.0-66.0); RED BLOOD COUNT 2.92 10^6/uL (4.00-5.40); WHITE BLOOD COUNT 5.5 10^3/uL (4.0-10.0)
[2022-08-30 18:06] LABS: PLATELET COUNT, AUTOMATED 96 10^3/uL (150-450)
[2022-08-30 18:20] LABS: IRON (FE) 51 UG/DL (50-170)
[2022-08-30 18:21] LABS: ALBUMIN 2.6 G/DL (3.2-5.2); ALKALINE PHOSPHATASE 800 U/L (46-116); ALT/SGPT 12 U/L (7.0-40); AST/SGOT 22 U/L (<34); BLOOD UREA NITROGEN 26 MG/DL (9-23); CALCIUM LEVEL 8.4 MG/DL (8.3-10.6); CARBON DIOXIDE LEVEL 26 MMOL/L (20-31); CHLORIDE LEVEL 103 MMOL/L (98-107); CHOLESTEROL LEVEL 78 MG/DL (<200); CHOLESTEROL RISK RATIO 2.23 (<5); CREATININE FOR GFR 0.87 MG/DL (0.55-1.30); GLOMERULAR FILTRATION RATE > 60.0 (>39); GLUCOSE, FASTING 117 MG/DL (74-106); HDL CHOLESTEROL 34.9 MG/DL (>40); LDL CHOLESTEROL 32.1 MG/DL (<100); NON-HDL-C 43 MG/DL; PERCENT SATURATION 16.5 % (13.2-45.0); POTASSIUM SERUM 4.1 MMOL/L (3.5-5.1); SODIUM LEVEL 138 MMOL/L (136-145); TOTAL IRON BINDING CAPACITY 310 UG/DL (250-425); TRIGLYCERIDES LEVEL 55 MG/DL (<150)
[2022-08-30 18:23] LABS: THYROID STIMULATING HORMONE 1.532 uIU/ML (0.55-4.78)
== END ==
LOC: M SFHCCLAY 13:28
PROVIDERS: ATTEND Nurse Practitioner Family
DX: E11.9 Type 2 diabetes mellitus without complications (principal); R30.0 Dysuria; I10 Essential (primary) hypertension; I42.9 Cardiomyopathy, unspecified; I25.10 Atherosclerotic heart disease of native coronary artery without angina pectoris; D50.9 Iron deficiency anemia, unspecified; Z23 Encounter for immunization; H91.93 Unspecified hearing loss, bilateral; Z94.4 Liver transplant status

== ENCOUNTER → 2022-09-20 | Outpatient (CLI) | payer MEDICARE, OTHER | LOC: M CLY 11:42 | PROVIDERS: ATTEND Nurse Practitioner Family | DX: I50.9 Heart failure, unspecified (principal); J90 Pleural effusion, not elsewhere classified; Z95.2 Presence of prosthetic heart valve; Z95.5 Presence of coronary angioplasty implant and graft ==

== ENCOUNTER → 2022-09-20 | Outpatient (REF) | payer MEDICARE, OTHER ==
[2022-09-20 18:28] LABS: BASO % 0.4 % (0.0-1.0); EOS # 0.1 10^3/uL (0.0-0.5); EOS % 1.9 % (0.0-3.0); HEMATOCRIT 29.3 % (36.0-47.0); HEMOGLOBIN 8.9 g/dl (12.0-15.5); LYMPH # 2.2 10^3/uL (1.5-5.0); LYMPH % 47.9 % (24.0-44.0); MEAN CORPUSCULAR HEMOGLOBIN 30.8 pg (27.0-33.0); MEAN CORPUSCULAR HGB CONC 30.4 g/dl (32.0-36.5); MEAN CORPUSCULAR VOLUME 101.4 fl (80.0-96.0); MONO # 0.6 10^3/uL (0.0-0.8); MONO % 12.6 % (2.0-8.0); NEUTROPHILS # 1.6 10^3/uL (1.5-8.5); NEUTROPHILS % 34.8 % (36.0-66.0); RED BLOOD COUNT 2.89 10^6/uL (4.00-5.40); WHITE BLOOD COUNT 4.7 10^3/uL (4.0-10.0)
[2022-09-20 18:29] LABS: PLATELET COUNT, AUTOMATED 71 10^3/uL (150-450)
[2022-09-20 18:48] LABS: ALKALINE PHOSPHATASE 795 U/L (46-116); ALT/SGPT 47 U/L (7.0-40); AST/SGOT 59 U/L (<34); BILIRUBIN,TOTAL 1.2 MG/DL (0.3-1.2); BLOOD UREA NITROGEN 29 MG/DL (9-23); CALCIUM LEVEL 8.6 MG/DL (8.3-10.6); CARBON DIOXIDE LEVEL 25 MMOL/L (20-31); CHLORIDE LEVEL 103 MMOL/L (98-107); CREATININE FOR GFR 0.87 MG/DL (0.55-1.30); GLOMERULAR FILTRATION RATE > 60.0 (>39); GLUCOSE, FASTING 130 MG/DL (74-106); MAGNESIUM LEVEL 1.6 MG/DL (1.8-2.4); POTASSIUM SERUM 4.2 MMOL/L (3.5-5.1); SODIUM LEVEL 137 MMOL/L (136-145); TOTAL PROTEIN 6.8 G/DL (5.7-8.2)
== END ==
LOC: M SFHCCLAY 11:23
PROVIDERS: ATTEND Nurse Practitioner Family
DX: J18.9 Pneumonia, unspecified organism (principal)

== ENCOUNTER → 2022-10-18 | Outpatient (REF) | payer MEDICARE, OTHER ==
[2022-10-18 17:58] LABS: HEMOGLOBIN 9.2 g/dl (12.0-15.5); MEAN CORPUSCULAR HEMOGLOBIN 30.5 pg (27.0-33.0); MEAN CORPUSCULAR HGB CONC 30.7 g/dl (32.0-36.5); MEAN CORPUSCULAR VOLUME 99.3 fl (80.0-96.0); PLATELET COUNT, AUTOMATED 100 10^3/uL (150-450); RED BLOOD COUNT 3.02 10^6/uL (4.00-5.40); WHITE BLOOD COUNT 6.3 10^3/uL (4.0-10.0)
[2022-10-18 19:08] LABS: ALBUMIN 2.6 G/DL (3.2-5.2); BILIRUBIN,TOTAL 1.4 MG/DL (0.3-1.2); CALCIUM LEVEL 8.5 MG/DL (8.3-10.6); CREATININE FOR GFR 0.98 MG/DL (0.55-1.30); GLOMERULAR FILTRATION RATE 58.4 (>39); POTASSIUM SERUM 4.1 MMOL/L (3.5-5.1); TOTAL PROTEIN 6.9 G/DL (5.7-8.2)
== END ==
LOC: M LABDRAWC 17:22
PROVIDERS: ATTEND Nurse Practitioner Family
DX: Z94.4 Liver transplant status (principal); Z79.899 Other long term (current) drug therapy

== ENCOUNTER → 2022-10-20 | Outpatient (REF) | payer MEDICARE, OTHER ==
[2022-10-20 17:29] LABS: HEMATOCRIT 29.3 % (36.0-47.0); HEMOGLOBIN 9.1 g/dl (12.0-15.5); MEAN CORPUSCULAR HEMOGLOBIN 30.7 pg (27.0-33.0); MEAN CORPUSCULAR HGB CONC 31.1 g/dl (32.0-36.5); PLATELET COUNT, AUTOMATED 106 10^3/uL (150-450); RED BLOOD COUNT 2.96 10^6/uL (4.00-5.40); WHITE BLOOD COUNT 5.4 10^3/uL (4.0-10.0)
[2022-10-20 18:17] LABS: ALBUMIN 2.7 G/DL (3.2-5.2); ALKALINE PHOSPHATASE 1113 U/L (46-116); ALT/SGPT 27 U/L (7.0-40); AST/SGOT 38 U/L (<34); BILIRUBIN,TOTAL 1.4 MG/DL (0.3-1.2); BLOOD UREA NITROGEN 35 MG/DL (9-23); CALCIUM LEVEL 8.4 MG/DL (8.3-10.6); CARBON DIOXIDE LEVEL 21 MMOL/L (20-31); CHLORIDE LEVEL 107 MMOL/L (98-107); CREATININE FOR GFR 0.92 MG/DL (0.55-1.30); GLOMERULAR FILTRATION RATE > 60.0 (>39); GLUCOSE, FASTING 144 MG/DL (74-106); POTASSIUM SERUM 4.3 MMOL/L (3.5-5.1); SODIUM LEVEL 137 MMOL/L (136-145); TOTAL PROTEIN 6.9 G/DL (5.7-8.2)
== END ==
LOC: M LABDRAWC 17:10
PROVIDERS: ATTEND Nurse Practitioner Family
DX: Z94.4 Liver transplant status (principal); Z79.899 Other long term (current) drug therapy

== ENCOUNTER → 2022-10-30 | Outpatient (REF) | payer MEDICARE, OTHER ==
[2022-10-30 18:21] LABS: BASO % 0.6 % (0.0-1.0); EOS # 0.1 10^3/uL (0.0-0.5); EOS % 1.5 % (0.0-3.0); HEMATOCRIT 29.7 % (36.0-47.0); HEMOGLOBIN 9.1 g/dl (12.0-15.5); LYMPH # 1.8 10^3/uL (1.5-5.0); LYMPH % 35.3 % (24.0-44.0); MEAN CORPUSCULAR HEMOGLOBIN 30.4 pg (27.0-33.0); MEAN CORPUSCULAR HGB CONC 30.6 g/dl (32.0-36.5); MEAN CORPUSCULAR VOLUME 99.3 fl (80.0-96.0); MONO # 0.5 10^3/uL (0.0-0.8); MONO % 10.4 % (2.0-8.0); NEUTROPHILS # 2.5 10^3/uL (1.5-8.5); NEUTROPHILS % 48.5 % (36.0-66.0); PLATELET COUNT, AUTOMATED 107 10^3/uL (150-450); RED BLOOD COUNT 2.99 10^6/uL (4.00-5.40); WHITE BLOOD COUNT 5.2 10^3/uL (4.0-10.0)
[2022-10-30 18:36] LABS: PROTHROMBIN TIME 13.4 SECONDS (12.5-14.5)
[2022-10-30 18:54] LABS: ALBUMIN 2.8 G/DL (3.2-5.2); ALKALINE PHOSPHATASE 1025 U/L (46-116); ALT/SGPT 33 U/L (7.0-40); AST/SGOT 42 U/L (<34); BILIRUBIN,TOTAL 1.7 MG/DL (0.3-1.2); BLOOD UREA NITROGEN 30 MG/DL (9-23); CA19-9 TUMOR MARKER,CARBOHYDRA 5.2 U/ML (<35.0); CARBON DIOXIDE LEVEL 23 MMOL/L (20-31); CHLORIDE LEVEL 104 MMOL/L (98-107); CREATININE FOR GFR 0.86 MG/DL (0.55-1.30); GLOMERULAR FILTRATION RATE > 60.0 (>39); GLUCOSE, FASTING 173 MG/DL (74-106); POTASSIUM SERUM 3.9 MMOL/L (3.5-5.1); SODIUM LEVEL 136 MMOL/L (136-145); TOTAL PROTEIN 6.7 G/DL (5.7-8.2)
== END ==
LOC: M LABDRAWC 17:15
PROVIDERS: ATTEND Nurse Practitioner Family
DX: Z94.4 Liver transplant status (principal)

== ENCOUNTER → 2022-11-30 | Outpatient (REF) | payer MEDICARE, OTHER ==
[~2022-11-30] MED LIST changes: +AZIT500T5 PO; +HYDR-3363 PO
== END ==
LOC: M SFHCCLAY 11:57
PROVIDERS: ATTEND Nurse Practitioner Family
DX: E83.42 Hypomagnesemia (principal)

== ENCOUNTER 2022-12-02 18:21 | Emergency (ER) | payer MEDICARE, OTHER ==
[~2022-12-02] VITALS: Ht 160 cm; Wt 57.7 kg
[~2022-12-02 18:21] MED LIST changes: -AZIT500T5 PO; -HYDR-3363 PO
[2022-12-02 19:31] LABS: BASO % 0.6 % (0.0-1.0); EOS # 0.1 10^3/uL (0.0-0.5); EOS % 2.4 % (0.0-3.0); HEMATOCRIT 29.6 % (36.0-47.0); HEMOGLOBIN 9.4 g/dl (12.0-15.5); LYMPH # 1.8 10^3/uL (1.5-5.0); LYMPH % 34.5 % (24.0-44.0); MEAN CORPUSCULAR HGB CONC 31.8 g/dl (32.0-36.5); MEAN CORPUSCULAR VOLUME 97.7 fl (80.0-96.0); MONO # 0.5 10^3/uL (0.0-0.8); MONO % 8.5 % (2.0-8.0); NEUTROPHILS # 2.6 10^3/uL (1.5-8.5); NEUTROPHILS % 49.3 % (36.0-66.0); RED BLOOD COUNT 3.03 10^6/uL (4.00-5.40); WHITE BLOOD COUNT 5.3 10^3/uL (4.0-10.0)
[2022-12-02 19:54] LABS: PLATELET COUNT, AUTOMATED 74 10^3/uL (150-450)
[2022-12-02 19:55] LABS: ALBUMIN 2.7 G/DL (3.2-5.2); BILIRUBIN,DIRECT 3.1 MG/DL (<0.4); BILIRUBIN,TOTAL 3.7 MG/DL (0.3-1.2); CALCIUM LEVEL 8.5 MG/DL (8.3-10.6); CK-MB VALUE MASS 2.2 NG/ML (<3.6); CREATININE FOR GFR 1.11 MG/DL (0.55-1.30); GLOMERULAR FILTRATION RATE 50.6 (>39); TOTAL PROTEIN 6.9 G/DL (5.7-8.2)
[2022-12-02 19:58] LABS: MB/CK RELATIVE INDEX 3.05 (< OR =4)
[2022-12-02] MEDS ORDERED: IPRATROPIUM 0.5MG/ALBUTEROL 2.5MG INH SOL UD 3ML (DUONEB) NEB ONE (20:00)
[2022-12-02] MEDS ORDERED: AZITHROMYCIN INJ 500 MG, VIAL MATE ADAPTER 1 EACH in NS 250 ML IV ONE (21:15)
[2022-12-02] MEDS ORDERED: NS 250 ML IV ONE (21:35)
[2022-12-02 21:45] VITALS: BP 145/88
[2022-12-02 21:47] LABS: MB/CK RELATIVE INDEX 2.85 (< OR =4)
[2022-12-02] MEDS ORDERED: LevoFLOXacin 750 MG TABLET PO ONE (21:50)
[2022-12-02] MEDS ORDERED: LEVO1TAB40 PO (21:53)
[2022-12-02] MEDS ORDERED: HYDR-3363 PO (21:53)
[2022-12-02] MEDS ORDERED: AZIT500T5 PO (21:53)
== END 2022-12-02 22:35 | disposition home or self-care (01) ==
LOC: M ED 18:21
DX: J18.9 Pneumonia, unspecified organism (principal); F41.9 Anxiety disorder, unspecified; I25.10 Atherosclerotic heart disease of native coronary artery without angina pectoris; Z94.4 Liver transplant status; Z95.5 Presence of coronary angioplasty implant and graft; Z79.899 Other long term (current) drug therapy
CPT/HCPCS: 71045; 80048; 80076; 80197; 82550; 82553; 83605; 83880; 84484; 85025; 85049; 85055; 87040; 87486; 87581; 87633; 87798; 93005; 93041; 94640; 94760; 96365; 99285; J0456